=== PATIENT | male | born 1965 | race Caucasian/White ===

== ENCOUNTER → 2016-12-19 | Outpatient (CLI) | payer BC, OTHER ==
[~2016-12-19] MED LIST: ACET50TAOT PO
--- NOTE | 2016-12-19 13:49 | REP ---
MRI thoracic spine without contrast: History: Pain in the thoracic and lumbar spine. No comparison imaging. Technique: Sagittal and axial T1 and T2-weighted scans are acquired in the usual fashion with and without fat saturation. Sequences include spin echo, turbo spin-echo, and STIR imaging sequences. MRI findings: There is a 1.7 cm hemangioma in the T12 vertebral body. Cortical and medullary bone signal intensity are otherwise unremarkable. Vertebral body heights are preserved. Alignment is normal. Disc spaces are maintained except at T5-6 and T6-7 which are slightly narrowed. At the T5-6 level, there is a right paracentral focal disc protrusion which effaces the ventral lateral subarachnoid space and subtly flattens the ventral lateral margin of the thoracic cord. There is also mild lateral disc bulging at T6-T7. No other thoracic disc herniation is seen. Thoracic cord is normal in coarse, caliber and signal intensity on T1 and T2-weighted scans. No neural foraminal lesion is appreciated. Impression: Mild degenerative disc changes with a right paracentral focal disc protrusion at T5-6 and right posterior disc bulging at T6-T7. Signed by Cristophre Castillo MD 12/19/2016 03:53 P
--- NOTE | 2016-12-19 15:31 | REP ---
MRI lumbar spine without contrast: History: Pain in the lumbar spine. Technique: Sagittal and axial T1 and T2-weighted scans are acquired in the usual fashion with and without fat saturation. Sequences include spin echo, turbo spin-echo, and STIR imaging sequences. MRI findings: Cortical and medullary bone signal intensity are normal. Vertebral body heights are preserved. Alignment is normal. Normal caliber aorta is seen. No extra spinal abnormality is observed. There is a 1.8 cm hemangioma in the right side of the T12 vertebral body. Conus medullaris is normal in position and appearance at L1. Disc spaces are maintained in height and signal intensity. Axial and sagittal images at the L5-S1 level shows mild bilateral facet hypertrophy consistent with some degree of osteoarthritis. There is mild diffuse disc bulging at the L5-S1 disc margin. This effaces the ventral epidural fat but does not compress the thecal sac. No neural foraminal narrowing is seen. No spondylolysis or spondylolisthesis is seen. At L4-5, there is mild diffuse disc bulging also noted subtly indenting the ventral margin of the thecal sac. There is mild to moderate facet hypertrophy at L4-5. Canal size is borderline. At L3-4, there is mild facet and ligamentum flavum hypertrophy. Borderline canal size is seen. There is diffuse disc bulging. No neural foraminal narrowing is seen. At L2-L3, there is no significant abnormality. The L1-L2 level is unremarkable as well. Impression: Borderline canal size at L4-5 and L3-4. Facet hypertrophy bilaterally at L4-L5, L5-S1 and to a lesser extent L3-4. No neural foraminal narrowing is seen. Signed by Cristopher Castillo MD 12/19/2016 03:54 P
== END ==
LOC: M RAD 11:05
PROVIDERS: ATTEND Family Medicine
DX: M51.36 Other intervertebral disc degeneration, lumbar region (principal); M51.24 Other intervertebral disc displacement, thoracic region

== ENCOUNTER → 2017-10-08 | Outpatient (REF) | payer OTHER | LOC: M LAB REF 09:22 | DX: J02.9 Acute pharyngitis, unspecified (principal) ==

== ENCOUNTER 2018-11-29 06:38 | Day surgery (SDC) | payer BC, OTHER ==
[~2018-11-29] VITALS: Ht 180.3 cm; Wt 109.8 kg
[~2018-11-29 06:38] MED LIST changes: +ACET500T15 PO; -ACET50TAOT PO; +ATOR1TAB19 PO
[2018-11-29] MEDS ORDERED: LIDOCAINE 2% INJ 100 MG/5 ML SDV (FOR ANES.) As Ordered ONE (07:29)
[2018-11-29] MEDS ORDERED: propofoL 200 MG/20 ML VIAL As Ordered ONE ×2 (07:29→07:54)
--- NOTE | 2018-11-29 07:53 | ROOR ---
Patient Name: Santiago Casanova Procedure Date: 11/29/2018 7:31 AM Date of : 1965 Age: 53 Room: [facility] Gender: Male Note Status: Finalized Procedure: Colonoscopy Indications: High risk colon cancer surveillance: Personal history of colonic polyps, Last colonoscopy: August 2015 Providers: Phi PHAM MD Referring MD: PHI ISAACS MD Requesting Provider: Medicines: Monitored Anesthesia Care Complications: No immediate complications. Procedure: Pre-Anesthesia Assessment: - The heart rate, respiratory rate, oxygen saturations, blood pressure, adequacy of pulmonary ventilation, and response to care were monitored throughout the procedure. The Colonoscope was introduced through the anus and advanced to the cecum, identified by appendiceal orifice and ileocecal valve. The colonoscopy was performed without difficulty. The patient tolerated the procedure well. The quality of the bowel preparation was adequate and fair. Findings: The perianal and digital rectal examinations were normal. Retroflexion in the right colon was performed. Two sessile polyps were found in the ascending colon and cecum. The polyps were diminutive in size. These polyps were removed with a cold snare. Resection and retrieval were complete. The exam was otherwise without abnormality on direct and retroflexion views. Impression: - Preparation of the colon was fair. - Two diminutive polyps in the ascending colon and in the cecum, removed with a cold snare. Resected and retrieved. - The examination was otherwise normal on direct and retroflexion views. Recommendation: - Repeat colonoscopy in 5 years for surveillance based on personal history of previous adenomatous polyps. Phi Pham MD Phi PHAM MD 11/29/2018 7:53:29 AM Electronically signed by Phi PHAM MD Number of Addenda: 0 Note Initiated On: 11/29/2018 7:31 AM Estimated Blood Loss: Estimated blood loss: none.
[2018-11-29] MEDS ORDERED: NS 1,000 ML IV ONE (08:00)
[2018-11-29 08:15] VITALS: BP 123/87
== END 2018-11-29 08:26 | disposition home or self-care (01) ==
LOC: M OPP 06:38
PROVIDERS: ATTEND Internal Medicine Gastroenterology
DX: Z12.11 Encounter for screening for malignant neoplasm of colon (principal); Z86.010 Personal history of colon polyps; D12.2 Benign neoplasm of ascending colon; D12.0 Benign neoplasm of cecum; Z79.899 Other long term (current) drug therapy

== ENCOUNTER 2019-03-18 10:36 | Inpatient (IN) | payer BC, OTHER ==
[~2019-03-18] VITALS: Ht 175.3 cm; Wt 111.4 kg
[2019-03-18] MEDS ORDERED: ONDANSETRON 4MG/2ML VIAL (J2405) IV ONE (11:00)
[2019-03-18] MEDS: MORPHINE 4 MG/ML 1ML VIAL/SYRINGE (J2270) IV PRN ×2 (11:14→12:48)
--- NOTE | 2019-03-18 11:55 | REP ---
RIGHT ANKLE, THREE VIEWS: Three views of the right ankle performed. Oblique fracture of the distal tibia is mildly displaced. There is a fracture of the posterior malleolus. There is an oblique fracture of the distal fibula, which is also mildly displaced. Ankle mortise appears preserved. There is mild inferior calcaneal spurring. Electronically Signed by Andres Herrera MD 03/18/2019 04:21 P
--- NOTE | 2019-03-18 13:51 | REP ---
CT RIGHT ANKLE: Axial CT right ankle performed. Oblique fracture of the distal fibula is noted with mild posterolateral displacement. There is a comminuted intra-articular fracture of the distal tibia which involves the posterior malleolus. The posterior malleolar fragment is not significantly displaced. The major oblique fracture demonstrates mild lateral and posterior displacement of the major distal fragment. Ankle mortise is relatively well maintained. Electronically Signed by Andres Herrera MD 03/18/2019 04:24 P
[2019-03-18] MEDS ORDERED: MORPHINE 2 MG/ML 1ML VIAL (J2270) IV PRN (15:15)
[2019-03-18 15:55] VITALS: BP 129/71
[2019-03-18 16:21] LABS: HEMATOCRIT 45.9 % (42.0-52.0); MEAN CORPUSCULAR HEMOGLOBIN 29.2 pg (27.0-33.0); MEAN CORPUSCULAR HGB CONC 32.7 g/dl (32.0-36.5); MEAN CORPUSCULAR VOLUME 89.3 fl (80.0-96.0); PLATELET COUNT, AUTOMATED 275 10^3/uL (150-450); RED BLOOD COUNT 5.14 10^6/uL (4.30-6.10); WHITE BLOOD COUNT 11.7 10^3/uL (4.0-10.0)
[2019-03-18 16:34] LABS: INR 1.09; PROTHROMBIN TIME 13.8 SECONDS (11.8-14.0)
--- NOTE | 2019-03-18 16:34 | REP ---
Single view chest: 03/18/2019. Indication: Preoperative assessment. Comparison: None. Findings: The lungs are clear. There is no pleural effusion or pneumothorax. The cardiomediastinal silhouette is unremarkable. Impression: No acute cardiopulmonary process. Electronically Signed by Christiano Nieves DO 03/18/2019 04:27 P
[2019-03-18 16:35] LABS: PARTIAL THROMBOPLASTIN TIME 26.7 SECONDS (25.0-38.4)
[2019-03-18 16:42] LABS: ERYTHROCYTE SEDIMENTATION RATE 2 mm/hr (0-20)
[2019-03-18 16:46] LABS: BLOOD UREA NITROGEN 15 MG/DL (7-18); CALCIUM LEVEL 8.7 MG/DL (8.5-10.1); CARBON DIOXIDE LEVEL 28 MEQ/L (21-32); CHLORIDE LEVEL 104 MEQ/L (98-107); CREATININE FOR GFR 1.02 MG/DL (0.70-1.30); GLOMERULAR FILTRATION RATE > 60.0 (>56); GLUCOSE, FASTING 94 MG/DL (70-100); POTASSIUM SERUM 4.2 MEQ/L (3.5-5.1); SODIUM LEVEL 139 MEQ/L (136-145)
--- NOTE | 2019-03-18 16:46 | ECGEPIP ---
[facility] Test Date: 2019-03-18 Pat Name: HERI ALVAREZ Department: Room: N2207-79 Gender: Male [employer]: : 1965 Requested By: TRACEY Rock Order Number: [id number] Reading MD: Fred Leal Measurements Intervals [place] Rate: 87 P: 50 ME: 160 QRS: 29 QRSD: 91 T: 49 QT: 356 QTc: 430 Interpretive Statements SINUS RHYTHM WITH FREQUENT SUPRAVENTRICULAR PREMATURE COMPLEXES Slightly prominent right precordial R waves; rule out right ventricular conduction delay. Other than the observed ectopic activity, no change from 03/23/16 Electronically Signed on 03-18-2019 16:46:03 EST by Fred Leal
--- NOTE | 2019-03-18 17:00 | HPE ---
DATE OF ADMISSION: 03/18/2019 CHIEF COMPLAINT: Right ankle pain. The patient states that he was outside walking today when he had a slip and fall. He immediately appreciated extreme pain, 10 out of 10, that was sharp in nature and localized to the ankle and it was made worse with any sort of movement or weight bearing and improved only with immobilization and pain medications. He denies any numbness, tingling, fevers, chills, nausea, vomiting, or pain elsewhere in his body. REVIEW OF SYSTEMS: Complete 10-system review was conducted and pertinent positives and negatives as noted in the history of present illness, all other systems negative. ALLERGIES: No known drug allergies. MEDICATIONS: The patient is just on a statin. PAST MEDICAL HISTORY: Hyperlipidemia. PAST SURGICAL HISTORY: Appendectomy and tonsillectomy as a child. SOCIAL HISTORY: He lives at home with his . Nonsmoker. PHYSICAL EXAMINATION: The patient is awake, alert, oriented, well dressed, appropriate affect and mood. Breathing nonlabored on room air. Normocephalic, atraumatic. Bilateral upper extremities are nontender to palpation. Full range of motion of the shoulders, wrists, and elbows without pain or discomfort. Skin is intact. Radial pulse 2+. Sensation intact to light touch in superficial sensory branch, radial nerve, median nerve and ulnar nerve. Positive AIN, PIN, and ulnar motor nerve function. Left lower extremity with no tenderness to palpation, negative log roll. Full active range of motion of the toes, ankle and knee. Skin is intact. Posterior tibial pulse 2+. Sensation is intact to light touch in superficial, peroneal, deep peroneal, sural, saphenous, and tibial distributions. Positive EHL, FHL, tibialis, and gastroc motor function. Right lower extremity skin is intact, significant swelling, ecchymosis. Posterior tibial pulse 2+ on the right. Positive EHL, FHL, tibialis, and gastroc motor function. No tenderness to palpation about the knee. Sensation intact to light touch in superficial, peroneal, deep peroneal, sural, saphenous, and tibial distributions. Imaging reviewed demonstrating a right distal tibia and fibula fracture, intraarticular. DIAGNOSIS: Right distal fibula and tibia fracture, intraarticular. Discussed at great length with the patient that at this point in time, due to the swelling and soft tissue compromise, that we place the patient to an ex fix. The ex fix will remain in place anywhere from a few days to a couple of weeks in order to restore tissue to a more grindstone state, at which point we will remove the ex fix and use internal hardware for an open reduction, internal fixation (ORIF). The patient will be admitted overnight. He will get antibiotic prophylaxis and placed on deep vein thrombosis (DVT) prophylaxis. We will work on pain control. The patient is currently nothing by mouth. This was discussed with the patient and his . We discussed the risks and benefits, including, but not limited to infection and damage to surrounding structures, and they agree with surgical intervention.
[2019-03-18] MEDS ORDERED: MIDAZOLAM INJ 2 MG/2 ML VIAL (J2250) As Ordered ONE (17:56)
[2019-03-18] MEDS ORDERED: fentaNYL 100 MCG/2 ML INJECTION (J3010) As Ordered ONE ×2 (17:56→19:20)
[2019-03-18] MEDS ORDERED: ceFAZolin 2 GM/D5W 50 ML IV BAG (J0690 PER 500MG) As Ordered ONE (18:25)
[2019-03-18] MEDS ORDERED: ACETAMINOPHEN 1000MG 100ML IV BTL (OFIRMEV) (J0131 PER 10MG) As Ordered ONE (18:39)
[2019-03-18] MEDS ORDERED: KETOROLAC 60 MG/2 ML VIAL (J1885) As Ordered ONE (18:39)
[2019-03-18] MEDS ORDERED: dexameTHASONE 4 MG/ML 1ML VIAL (J1100) As Ordered ONE (18:39)
[2019-03-18] MEDS ORDERED: PROPOFOL 200 MG/20 ML VIAL As Ordered ONE (18:39)
[2019-03-18] MEDS ORDERED: ONDANSETRON 4MG/2ML VIAL (J2405) As Ordered ONE (18:39)
[2019-03-18] MEDS ORDERED: LIDOCAINE 2% INJ 100 MG/5 ML SDV (FOR ANES.) As Ordered ONE (18:39)
[2019-03-18] MEDS ORDERED: METOCLOPRAMIDE INJ 10MG/2ML VIAL (J2765) As Ordered ONE (18:49)
[2019-03-18] MEDS ORDERED: DESFLURANE 240 ML INHALANT As Ordered ONE (19:00)
[2019-03-18] MEDS: fentaNYL 100 MCG/2 ML INJECTION (J3010) IV PRN ×6 (19:22→23:36)
[2019-03-18] MEDS ORDERED: PERCOCET 5MG/325MG TAB As Ordered ONE (19:27)
[2019-03-18] MEDS ORDERED: MEPERIDINE INJ 25 MG/ML VIAL (J2175) IV PRN (19:30)
[2019-03-18] MEDS ORDERED: LR 1,000 ML IV SCH (19:30)
[2019-03-18] MEDS ORDERED: PERCOCET 5MG/325MG TAB PO PRN (19:30)
[2019-03-18] MEDS ORDERED: METOCLOPRAMIDE INJ 10MG/2ML VIAL (J2765) IV PRN (19:30)
[2019-03-18] MEDS ORDERED: ONDANSETRON 4MG/2ML VIAL (J2405) IV PRN (19:30)
--- NOTE | 2019-03-18 19:35 | REP ---
Six spot fluoroscopic images: 03/18/2019. Indication: Procedural guidance. Findings: Imaging provided for intraoperative guidance. Please see operative report for details. Impression: Imaging provided for intraoperative guidance. 1 minute 14 seconds fluoroscopy time. Electronically Signed by Christiano Nieves DO 03/18/2019 07:25 P
[2019-03-18] MEDS ORDERED: HYDROMORPHONE HCL 0.5 MG/ 0.5 ML SYRINGE (J1170 PER 1) As Ordered ONE ×3 (19:47→20:12)
[2019-03-18] MEDS: HYDROMORPHONE HCL 0.5 MG/ 0.5 ML SYRINGE (J1170 PER 1) IV PRN ×4 (19:49→20:14)
[2019-03-18 21:05] VITALS: BP 162/96
[2019-03-18 21:42] VITALS: BP 169/96
[2019-03-18 22:26] VITALS: BP 125/84
[2019-03-18] MEDS: NS 1,000 ML IV SCH (23:38)
[2019-03-19] VITALS: BP 122/81
[2019-03-19] MEDS: ceFAZolin SOD 1 GM in D5W MINI-BAG PLUS 50 ML IV SCH ×3 (00:50→16:34)
[2019-03-19 01:19] VITALS: BP 120/78
[2019-03-19] MEDS: NS 1,000 ML IV SCH (01:35)
[2019-03-19 01:45] VITALS: BP 122/80
[2019-03-19 02:00] VITALS: BP 119/77
[2019-03-19] MEDS: oxyCODONE 5MG TAB PO PRN ×3 (05:00→16:34)
[2019-03-19 06:13] VITALS: BP 117/77
[2019-03-19] MEDS: MIRALAX *UNIT DOSE* 17GM PACKET PO SCH (09:00)
[2019-03-19] MEDS: ASPIRIN 81 MG ENTERIC TAB PO SCH ×2 (09:05→20:11)
[2019-03-19] MEDS: MORPHINE 2 MG/ML 1ML VIAL (J2270) IV PRN ×4 (14:00→21:25)
--- NOTE | 2019-03-19 16:21 | REP ---
CT right ankle without contrast: History: Ankle fracture. Comparison is made with today's radiographs. Comparison CT study is preop from March 18, 2019. Technique: Helical scanning is acquired and axial 2 mm images are reformatted. Coronal and sagittal multiplanar reformation images are generated. CT findings: There is an os naviculare again noted. External pin traction has been applied, anchored in the 1st proximal metatarsal and on plain radiographs in the proximal tibia. There is a comminuted distal tibial fracture which is effectively a trimalleolar fracture. The posterior tibial "malleolar" fragment fracture is somewhat diastatic, 2.5-3.5 mm. Otherwise not displaced. There is an obliquely oriented component to the distal diametaphyseal portion of the fracture which shows mild apex anterior angulation on CT images compared to the previous day's study. The medial malleolar component of the fracture appears anatomically aligned. At the medial aspect of the tibial plafond, there is 1-2 mm of cortical step off with depression of the medial malleolar fragment. The ankle mortise is intact. There is a tiny bone fragment at the lateral aspect of the ankle mortis intra-articular. No tarsal fracture is seen. The fibular fracture shows some overriding and diastases similar to the previous day's study. Impression: Comminuted distal tib-fib, trimalleolar, fracture with external pin traction. Mild apex anterior angulation of the major tibial component. Tiny intra-articular bone fragment. Electronically Signed by Cristopher Castillo MD 03/19/2019 05:52 P
--- NOTE | 2019-03-19 18:42 | REP ---
HISTORY: Status post external fixation. COMPARISON: The prior ankle exam of 03/18/2019 was reviewed. There is an external fixator in place. There appears to be no significant change although the examination of today is technically different than the dedicated ankle exam. Electronically Signed by Cash Gates DO 03/20/2019 04:14 P
[2019-03-19] MEDS ORDERED: MORPHINE 2 MG/ML 1ML VIAL (J2270) IV ONE (22:00)
[2019-03-19] MEDS: ACETAMINOPHEN 500 MG TAB PO SCH (22:17)
[2019-03-19] MEDS: MORPHINE 15 MG SA TAB PO SCH (22:17)
[2019-03-20] MEDS: oxyCODONE 5MG TAB PO PRN ×2 (02:20→12:29)
[2019-03-20] MEDS: ACETAMINOPHEN 500 MG TAB PO SCH ×3 (05:59→21:25)
[2019-03-20 06:00] VITALS: BP 116/80
[2019-03-20] MEDS: MORPHINE 15 MG SA TAB PO SCH ×2 (08:49→21:25)
[2019-03-20] MEDS: ASPIRIN 325 MG TAB PO SCH ×2 (08:49→21:24)
[2019-03-20] MEDS: MIRALAX *UNIT DOSE* 17GM PACKET PO SCH (08:50)
[2019-03-20 14:27] VITALS: BP 128/79
--- NOTE | 2019-03-20 19:09 | RO ---
DATE OF PROCEDURE: 03/18/2019 PREOPERATIVE DIAGNOSIS: Right pilon fracture. POSTOPERATIVE DIAGNOSIS: Right pilon fracture. PROCEDURE: Right multiplanar external fixator (ex fix). SURGEON: Renato Campbell MD CONCRETE MASON: ANESTHESIA: OPERATIVE INDICATIONS: 53-year-old male who suffered a pilon fracture while in his driveway after a slip and fall. We discussed that his unstable fracture needs fixation; however, soft tissue status does not allow for that at this time. Therefore, we will proceed with external fixating. Patient agreed. He understood the risks and benefits, including, but not limited to, infection, damage to surrounding structures, incomplete relief, malunion, nonunion. PREOPERATIVE ANTIBIOTICS: 2 grams of Ancef. BLOOD LOSS: Minimal. TOURNIQUET TIME: 31 minutes. COMPLICATIONS: None. DESCRIPTION OF PROCEDURE: Patient was brought back to the operating room (OR) in the supine position with only general anesthesia, at which point the right leg was prepped and draped in the usual fashion. Once we had a time-out and all in agreement site, side, and surgery, we elevated tourniquet up to 250 mmHg. We then made two stab incisions over the anterior tibia and placed two [address], confirmed on AP and lateral x-ray. We then proceeded to the calcaneal (calc) pin, went from medial to lateral, confirmed on x-ray positioning in the tuberosity. We then placed a pin into the 1st metatarsal, confirmed on AP and lateral films. We then used manual traction along with the external fixator wires to reduce the fracture plane by indirect method. Once this was confirmed on AP and lateral, we tightened down all the nuts, at which point we confirmed one last time on AP and lateral. We were happy with the reduction and completion at this point for temporary status. Patient was awakened and taken to the postanesthesia care unit (PACU) in stable condition. POSTOPERATIVE PLAN: Patient will work on elevation and pain control and soft tissue management. We will plan for definitive fixation at a later date.
[2019-03-20 22:00] VITALS: BP 133/85
[2019-03-21] MEDS: oxyCODONE 5MG TAB PO PRN ×2 (04:32→17:26)
[2019-03-21 06:00] VITALS: BP 129/53
[2019-03-21] MEDS: ACETAMINOPHEN 500 MG TAB PO SCH ×3 (06:08→21:29)
[2019-03-21] MEDS: ASPIRIN 325 MG TAB PO SCH ×2 (08:34→20:06)
[2019-03-21] MEDS: MIRALAX *UNIT DOSE* 17GM PACKET PO SCH (08:34)
[2019-03-21] MEDS: MORPHINE 15 MG SA TAB PO SCH ×2 (08:34→20:07)
[2019-03-21 14:33] VITALS: BP 143/96
[2019-03-21 15:23] VITALS: BP 138/82
[2019-03-21 20:00] VITALS: BP 114/73
[2019-03-22] MEDS: oxyCODONE 5MG TAB PO PRN ×3 (01:47→13:52)
[2019-03-22] MEDS: ACETAMINOPHEN 500 MG TAB PO SCH ×3 (05:10→20:04)
[2019-03-22 06:00] VITALS: BP 113/76
[2019-03-22] MEDS: ASPIRIN 325 MG TAB PO SCH ×2 (07:50→20:03)
[2019-03-22] MEDS: MOM 30ML SUSPENSION UDC PO SCH ×2 (07:51→07:53)
[2019-03-22] MEDS: MIRALAX *UNIT DOSE* 17GM PACKET PO SCH ×2 (07:51→07:54)
[2019-03-22] MEDS: MORPHINE 15 MG SA TAB PO SCH ×2 (07:51→20:03)
[2019-03-22 14:00] VITALS: BP 126/78
[2019-03-22 21:35] VITALS: BP 115/73
[2019-03-23] MEDS: ACETAMINOPHEN 500 MG TAB PO SCH ×3 (05:32→20:27)
[2019-03-23 06:17] VITALS: BP 120/75
[2019-03-23] MEDS: MOM 30ML SUSPENSION UDC PO SCH (09:00)
[2019-03-23] MEDS: MIRALAX *UNIT DOSE* 17GM PACKET PO SCH (09:00)
[2019-03-23] MEDS: MORPHINE 15 MG SA TAB PO SCH ×2 (09:04→20:26)
[2019-03-23] MEDS: ASPIRIN 325 MG TAB PO SCH ×2 (09:04→20:25)
[2019-03-23] MEDS: oxyCODONE 5MG TAB PO PRN ×2 (09:05→14:47)
[2019-03-23 14:00] VITALS: BP 125/72
[2019-03-23 21:17] VITALS: BP 121/78
[2019-03-24] MEDS: ACETAMINOPHEN 500 MG TAB PO SCH ×3 (05:28→21:21)
[2019-03-24] MEDS: ASPIRIN 325 MG TAB PO SCH ×2 (08:49→21:21)
[2019-03-24] MEDS: MORPHINE 15 MG SA TAB PO SCH ×2 (08:49→21:21)
[2019-03-24] MEDS: MIRALAX *UNIT DOSE* 17GM PACKET PO SCH (09:00)
[2019-03-24] MEDS: MOM 30ML SUSPENSION UDC PO SCH (09:00)
[2019-03-24 14:00] VITALS: BP 150/102
[2019-03-24] MEDS: oxyCODONE 5MG TAB PO PRN (18:58)
[2019-03-24 20:30] VITALS: BP 124/88
[2019-03-25] MEDS: ACETAMINOPHEN 500 MG TAB PO SCH ×3 (05:52→21:09)
[2019-03-25 05:54] VITALS: BP 124/86
[2019-03-25] MEDS: ASPIRIN 325 MG TAB PO SCH ×2 (08:27→21:08)
[2019-03-25] MEDS: MORPHINE 15 MG SA TAB PO SCH ×2 (08:28→21:09)
[2019-03-25] MEDS: MOM 30ML SUSPENSION UDC PO SCH (08:31)
[2019-03-25] MEDS: MIRALAX *UNIT DOSE* 17GM PACKET PO SCH (08:31)
--- NOTE | 2019-03-25 10:21 | IPN ---
DATE: 03/25/2019 CHIEF COMPLAINT: Postoperative day #7 right pilon fracture, external fixator application. HISTORY OF PRESENT ILLNESS: This is a pleasant individual who had a distal tibia fracture. He underwent external fixator application by Dr. Campbell on 03/18/2019. He is doing well, but he did notice last night he had some cramping in his toes that he tried to stretch out. He says that he has been drinking quite a bit of water. Other than that, he is doing well with elevating his foot. PHYSICAL EXAMINATION: He is a well-appearing man who looks his stated age of 53. He is alert and oriented times three. Mood and affect pleasant, positive. He is lying supine in bed with his foot elevated. External fixators in situ. Vital signs are stable. No chest pain, shortness of breath. He is able to wiggle his toes. Normal sensation throughout the foot. Foot is warm and well perfused. Swelling is at a low to moderate level with some mild right wrinkling. Pin sites were covered with gauze currently. ASSESSMENT AND PLAN: This is a 53-year-old man who is awaiting definitive fixation of his distal tibia fracture. In my own estimation he may need a few more days. I recommended rest, ice, and elevation. For the cramping, he can try to stretch this out as well as elevate for the swelling and try some fluids with electrolyte replacement. He is on aspirin 325 mg by mouth twice a day for venous thromboembolism (VTE) prophylaxis.
[2019-03-25 13:58] VITALS: BP 124/85
[2019-03-25 22:00] VITALS: BP 142/91
[2019-03-26] MEDS: oxyCODONE 5MG TAB PO PRN (03:42)
[2019-03-26] MEDS: ACETAMINOPHEN 500 MG TAB PO SCH ×3 (05:27→21:04)
[2019-03-26 06:00] VITALS: BP 140/90
[2019-03-26] MEDS: MIRALAX *UNIT DOSE* 17GM PACKET PO SCH (09:00)
[2019-03-26] MEDS: MOM 30ML SUSPENSION UDC PO SCH (09:00)
[2019-03-26] MEDS: ASPIRIN 325 MG TAB PO SCH ×2 (09:19→21:03)
[2019-03-26] MEDS: MORPHINE 15 MG SA TAB PO SCH ×2 (09:20→21:05)
[2019-03-26 14:00] VITALS: BP 130/86
[2019-03-26 22:00] VITALS: BP 131/73
[2019-03-27] MEDS: oxyCODONE 5MG TAB PO PRN (05:28)
[2019-03-27] MEDS: ACETAMINOPHEN 500 MG TAB PO SCH ×3 (05:29→21:13)
[2019-03-27 06:00] VITALS: BP 130/87
[2019-03-27] MEDS: MOM 30ML SUSPENSION UDC PO SCH (09:00)
[2019-03-27] MEDS: MIRALAX *UNIT DOSE* 17GM PACKET PO SCH (09:00)
[2019-03-27] MEDS: MORPHINE 15 MG SA TAB PO SCH ×2 (09:06→21:13)
[2019-03-27] MEDS: ASPIRIN 325 MG TAB PO SCH ×2 (09:06→21:12)
[2019-03-27 14:36] VITALS: BP 117/79
[2019-03-27 20:14] VITALS: BP 146/93
[2019-03-28] MEDS: oxyCODONE 5MG TAB PO PRN (03:39)
[2019-03-28] MEDS: ACETAMINOPHEN 500 MG TAB PO SCH ×3 (05:45→21:47)
[2019-03-28 05:47] VITALS: BP 135/89
[2019-03-28] MEDS: MORPHINE 15 MG SA TAB PO SCH ×2 (08:22→21:46)
[2019-03-28] MEDS: MIRALAX *UNIT DOSE* 17GM PACKET PO SCH (08:22)
[2019-03-28] MEDS: ASPIRIN 325 MG TAB PO SCH ×2 (08:22→21:43)
[2019-03-28] MEDS: MOM 30ML SUSPENSION UDC PO SCH (08:22)
[2019-03-28 14:14] VITALS: BP 109/81
[2019-03-28 22:00] VITALS: BP 117/81
[2019-03-29] MEDS: ACETAMINOPHEN 500 MG TAB PO SCH ×3 (05:25→20:27)
[2019-03-29 06:00] VITALS: BP 120/83
[2019-03-29] MEDS: MIRALAX *UNIT DOSE* 17GM PACKET PO SCH (09:00)
[2019-03-29] MEDS: MOM 30ML SUSPENSION UDC PO SCH (09:00)
[2019-03-29] MEDS: ASPIRIN 325 MG TAB PO SCH ×2 (09:50→20:27)
[2019-03-29] MEDS: MORPHINE 15 MG SA TAB PO SCH ×2 (09:51→20:27)
[2019-03-29 14:00] VITALS: BP 114/71
[2019-03-29 22:00] VITALS: BP 135/88
[2019-03-30] MEDS: ACETAMINOPHEN 500 MG TAB PO SCH ×3 (05:12→20:56)
[2019-03-30 06:00] VITALS: BP 128/86
[2019-03-30] MEDS: ASPIRIN 325 MG TAB PO SCH ×2 (08:32→20:55)
[2019-03-30] MEDS: MORPHINE 15 MG SA TAB PO SCH ×2 (08:33→20:56)
[2019-03-30] MEDS: MIRALAX *UNIT DOSE* 17GM PACKET PO SCH (08:33)
[2019-03-30] MEDS: MOM 30ML SUSPENSION UDC PO SCH (08:33)
[2019-03-30 14:30] VITALS: BP 125/85
[2019-03-30 22:00] VITALS: BP 134/83
[2019-03-31] MEDS: ACETAMINOPHEN 500 MG TAB PO SCH ×2 (05:32→14:00)
[2019-03-31 06:00] VITALS: BP 131/84
[2019-03-31] MEDS ORDERED: ceFAZolin SOD 2 GM in IV 1 EA IV ONE (06:00)
[2019-03-31] MEDS: MOM 30ML SUSPENSION UDC PO SCH (09:00)
[2019-03-31] MEDS: MIRALAX *UNIT DOSE* 17GM PACKET PO SCH (09:00)
[2019-03-31] MEDS: MORPHINE 15 MG SA TAB PO SCH ×2 (10:39→21:00)
[2019-03-31 14:51] VITALS: BP 130/82
[2019-03-31] MEDS ORDERED: fentaNYL 100 MCG/2 ML INJECTION (J3010) As Ordered ONE ×3 (15:39→21:44)
[2019-03-31] MEDS ORDERED: MIDAZOLAM INJ 2 MG/2 ML VIAL (J2250) As Ordered ONE ×2 (15:39→16:13)
[2019-03-31] MEDS: MIDAZOLAM INJ 2 MG/2 ML VIAL (J2250) IV SCH ×2 (15:53→15:57)
[2019-03-31] MEDS: fentaNYL 100 MCG/2 ML INJECTION (J3010) IV SCH ×2 (15:53→16:01)
[2019-03-31] MEDS ORDERED: PROPOFOL 200 MG/20 ML VIAL As Ordered ONE (16:13)
[2019-03-31] MEDS ORDERED: dexameTHASONE 4 MG/ML 1ML VIAL (J1100) As Ordered ONE ×2 (16:13→19:37)
[2019-03-31] MEDS ORDERED: ONDANSETRON 4MG/2ML VIAL (J2405) As Ordered ONE ×2 (16:13→19:37)
[2019-03-31] MEDS ORDERED: LIDOCAINE 2% INJ 100 MG/5 ML SDV (FOR ANES.) As Ordered ONE (16:13)
[2019-03-31] MEDS ORDERED: BUPIVACAINE/EPIN 0.25% 30 ML VIAL As Ordered ONE (16:15)
[2019-03-31] MEDS ORDERED: fentaNYL 250 MCG/5 ML INJECTION (J3010) As Ordered ONE (17:05)
[2019-03-31] MEDS ORDERED: ROCURONIUM BROMIDE 50 MG/5 ML VIAL As Ordered ONE ×2 (17:05→19:31)
[2019-03-31] MEDS ORDERED: dexameTHASONE 10 MG/1 ML VIAL PRES.FREE (J1100) ONE (17:53)
[2019-03-31] MEDS ORDERED: ROPIvacaine 0.5% 30 ML INJECTION (J2795 PER 1MG) ONE (17:53)
[2019-03-31] MEDS ORDERED: EPINEPHrine INJ 1 MG/ML 1ML VIAL ONE (17:53)
[2019-03-31] MEDS ORDERED: KETOROLAC 60 MG/2 ML VIAL (J1885) As Ordered ONE (19:37)
[2019-03-31] MEDS ORDERED: METOCLOPRAMIDE INJ 10MG/2ML VIAL (J2765) As Ordered ONE (19:37)
[2019-03-31] MEDS ORDERED: LACRILUBE (AKWA TEARS) OPHTH OINT 3.5 GM As Ordered ONE (19:54)
[2019-03-31] MEDS ORDERED: ceFAZolin 2 GM/D5W 50 ML IV BAG (J0690 PER 500MG) As Ordered ONE (20:17)
[2019-03-31] MEDS ORDERED: SUGAMMADEX SODIUM 500 MG/5 ML VIAL (BRIDION) As Ordered ONE (21:29)
[2019-03-31] MEDS ORDERED: LR 1,000 ML IV SCH (22:15)
[2019-03-31] MEDS ORDERED: MEPERIDINE INJ 25 MG/ML VIAL (J2175) IV PRN (22:15)
[2019-03-31] MEDS ORDERED: METOCLOPRAMIDE INJ 10MG/2ML VIAL (J2765) IV PRN (22:15)
[2019-03-31] MEDS ORDERED: ONDANSETRON 4MG/2ML VIAL (J2405) IV PRN (22:15)
[2019-03-31] MEDS ORDERED: PERCOCET 5MG/325MG TAB PO PRN (22:15)
[2019-03-31] MEDS ORDERED: fentaNYL 100 MCG/2 ML INJECTION (J3010) IV PRN (22:15)
[2019-03-31 23:10] VITALS: BP 141/91
[2019-03-31 23:51] VITALS: BP 137/88
[2019-04-01] MEDS: ACETAMINOPHEN 500 MG TAB PO SCH ×4 (00:48→20:49)
[2019-04-01] MEDS: ceFAZolin SOD 1 GM in D5W MINI-BAG PLUS 50 ML IV SCH ×3 (00:48→16:22)
[2019-04-01 01:09] VITALS: BP 135/87
[2019-04-01 02:00] VITALS: BP 134/87
[2019-04-01] MEDS: oxyCODONE 5MG TAB PO PRN ×3 (02:38→17:48)
[2019-04-01 06:53] VITALS: BP 135/87
[2019-04-01] MEDS ORDERED: XARE10TA PO (07:39)
[2019-04-01] MEDS ORDERED: PERC5TAB12 PO (07:39)
[2019-04-01] MEDS: MIRALAX *UNIT DOSE* 17GM PACKET PO SCH (08:22)
[2019-04-01] MEDS: MOM 30ML SUSPENSION UDC PO SCH (08:22)
[2019-04-01] MEDS: MORPHINE 15 MG SA TAB PO SCH ×2 (08:23→20:48)
[2019-04-01] MEDS ORDERED: ASPIRIN 325 MG TAB PO SCH (09:00)
[2019-04-01 10:00] VITALS: BP 135/85
[2019-04-01 14:30] VITALS: BP 137/88
[2019-04-01] MEDS: RIVAROXABAN 10 MG TAB (XARELTO) PO SCH (17:18)
[2019-04-01 20:00] VITALS: BP 123/81
[2019-04-02] MEDS: oxyCODONE 5MG TAB PO PRN ×2 (00:35→07:03)
[2019-04-02] MEDS ORDERED: IBUPROFEN 400 MG TAB PO PRN (02:45)
[2019-04-02] MEDS ORDERED: MORPHINE 2 MG/ML 1ML VIAL (J2270) IV ONE ×2 (02:45→04:45)
[2019-04-02] MEDS ORDERED: MORPHINE 2 MG/ML 1ML VIAL (J2270) IV PRN ×3 (03:00→07:45)
[2019-04-02] MEDS: ACETAMINOPHEN 500 MG TAB PO SCH ×3 (05:03→22:32)
[2019-04-02 06:36] VITALS: BP 127/82
[2019-04-02] MEDS: MIRALAX *UNIT DOSE* 17GM PACKET PO SCH (08:40)
[2019-04-02] MEDS: MOM 30ML SUSPENSION UDC PO SCH (08:40)
[2019-04-02] MEDS: MORPHINE 15 MG SA TAB PO SCH (08:40)
[2019-04-02] MEDS ORDERED: NS 1,000 ML IV SCH (08:43)
[2019-04-02] MEDS ORDERED: EPIDURAL/PCA KEYS XX PRN (08:45)
[2019-04-02] MEDS ORDERED: NALBUPHINE HCL 10 MG/ML AMP (J2300) IV PRN (08:45)
[2019-04-02] MEDS ORDERED: NALOXONE INJ 0.4 MG/1 ML VIAL (J2310) IV PRN (08:45)
[2019-04-02] MEDS ORDERED: diphenhydrAMINE INJ 50MG/ML VIAL (J1200) IV PRN (08:45)
[2019-04-02] MEDS ORDERED: MORPHINE 1MG/ML IN 0.9% NACL 100ML IV BAG IV PRN (08:45)
[2019-04-02 10:00] VITALS: BP 140/90
--- NOTE | 2019-04-02 10:25 | REP ---
Right ankle: 214 views. History: Intraoperative imaging right ankle fracture fixation. 4 minutes 56 seconds of fluoroscopy time is reported. Findings a sequence of 214 last image hold fluoroscopically obtained spot radiographs of the ankle document open reduction internal fixation procedure. Electronically Signed by Cristopher Castillo MD 04/02/2019 10:17 A
--- NOTE | 2019-04-02 10:37 | IPN ---
DATE: 04/02/2019 CHIEF COMPLAINT: Post-op day #1 right tibial plafond open reduction, internal fixation. HISTORY OF PRESENT ILLNESS: This 53-year-old man underwent removal of external fixator followed by three incision open reduction, internal fixation of his right distal tibia fracture. He was complaining about increased pain overnight. I asked them to elevate, ice leg as well as giving one intravenous (IV) dose followed by one other as needed IV dose of 2 mg of morphine. Seems does not control his pain adequately, so I rounded on him this morning. PHYSICAL EXAMINATION: This is a well-appearing 53-year-old man. Upon entering the room he was actually asleep, however according to the nurses 30 minutes ago he was in quite a bit of discomfort. He does complain of pain to his ankle. I split the splint all the way down right down the middle and debulked it, especially the anterior aspect of the splint. There is number of ABD pads there that had some dry blood on them that I removed. He immediately felt a lot better. He is able wiggle his toes. There is no pain on passive stretch. There is moderate swelling mostly to his foot. However, four calf apartments appear soft. Normal sensation of the dorsum and plantar aspect of his toes with good pedal pulses. The foot is appropriately elevated. Incisions appear normal. ASSESSMENT AND PLAN: This is 53-year-old man I have a little clinical suspicion of compartment syndrome postoperative day #1 after open reduction, internal fixation of his tibial plafond fracture given the fact that there is no pain on passive stretch and the compartments were soft. I recommended having the splint remain loose and open for today and applying ice and elevating it. Yohana our nurse practitioner had ordered an ultrasound to rule out deep venous thrombosis (DVT) but I do not think that this is necessary, so I will cancel this test. She also ordered a CORPORATE PARALEGAL and I think this is reasonable to try for today. However, I think he will feel much better now that the splint is open and his pain should settle down with conservative management. Dr. Campbell will be around to the see this man tomorrow and we will leave the splint open for today and re-wrap it tomorrow so that he can try to get up to use the washroom, but for now he I suspect will be mostly in bed with the foot elevated.
[2019-04-02 14:00] VITALS: BP 141/90
[2019-04-02] MEDS: ONDANSETRON 4MG/2ML VIAL (J2405) IV PRN (14:44)
[2019-04-02] MEDS: RIVAROXABAN 10 MG TAB (XARELTO) PO SCH (17:12)
[2019-04-02 17:53] VITALS: BP 132/86
[2019-04-02 22:32] VITALS: BP 139/90
[2019-04-03 01:57] VITALS: BP 142/90
[2019-04-03] MEDS: ONDANSETRON 4MG/2ML VIAL (J2405) IV PRN (02:57)
[2019-04-03] MEDS: ACETAMINOPHEN 500 MG TAB PO SCH ×3 (06:26→21:23)
[2019-04-03 06:29] VITALS: BP 144/90
[2019-04-03] MEDS ORDERED: ONDANSETRON 4 MG TAB (S0181) PO PRN (06:30)
[2019-04-03] MEDS ORDERED: PERCOCET 5MG/325MG TAB PO PRN ×2 (06:30)
[2019-04-03] MEDS ORDERED: XARE10TA PO (06:32)
[2019-04-03] MEDS ORDERED: MAALOX 30 ML SUSP *UDC PO PRN (07:00)
[2019-04-03] MEDS: MOM 30ML SUSPENSION UDC PO SCH (09:00)
[2019-04-03] MEDS: MIRALAX *UNIT DOSE* 17GM PACKET PO SCH (09:00)
[2019-04-03 14:00] VITALS: BP 144/93
--- NOTE | 2019-04-03 16:45 | RO ---
DATE OF PROCEDURE: 03/31/2019 PREPROCEDURE DIAGNOSIS: Right tibia and fibula pilon fracture, status post internal fixator. POSTPROCEDURE DIAGNOSIS: Right tibia and fibula pilon fracture, status post internal fixator. OPERATIVE PROCEDURE: Right tibia-fibula pilon removal of external fixator and open reduction internal fixation of tibia and fibula pilon fracture. SURGEON: Renato Campbell MD REAL ESTATE REPRESENTATIVE: BRODY Griffith who was essential during san portions of the procedure for retraction and hardware manipulation. ANESTHESIA: General. ESTIMATED BLOOD LOSS: 150 mL TOURNIQUET TIME: Two separate tourniquets. First two and a half while prone, then an hour and a half while supine. PREOPERATIVE ANTIBIOTICS: 2 grams of Ancef which was redosed during the procedure. COMPLICATIONS: None. INDICATION: A 53-year-old male that suffered an unstable right comminuted interarticular pilon fracture. On his first presentation we placed an external fixator, now two weeks later his soft tissues have responded appropriately and we are planning on going back for open reduction internal fixation with removal of the explant external fixator. The patient expressed understanding and agreement with this plan including the risks and benefits, including but not limited to infection, damage to soft tissue structures, malunion, nonunion, pain, incomplete relief, and posttraumatic arthritis. Patient expressed understanding and wished to proceed. DESCRIPTION OF PROCEDURE: Patient was brought back to the operating room (OR) in the supine position and underwent general anesthesia, at which point we had a time out confirming site, side and surgery. Once all in agreement, we removed the external fixator from his right ankle. We then placed the patient in prone position on the bed. Once all padded and secured, we prepped the right leg in the usual fashion and draped it. At which point we had repeat time out to reassess site and surgery. Once in agreement we elevated the tourniquet up to 250 mmHg. We then did a posterolateral incision senior living between the fibula and Achilles. Sharply incised down to the peroneal fascia to the lateral compartment. Careful to monitor for the sural nerve. Once entered the lateral compartment peroneal fascia we retracted them medially towards the Achilles, exposing the posterior aspect of the fibula. We thoroughly debrided and irrigated the fracture with sharp knife curettes, suction and irrigation. At which point, we used ndply-ii-axzsv reduction clamps then lobster clamp to reduce the fracture. We placed two 2.7 lag screws and then we placed a posteriorly based one-third tubular plate, confirmed on AP and lateral films. We were happy with the reduction and fixation. We then irrigated the wound thoroughly, then retracted the peroneals laterally exposing the posterior compartment. We incised the posterior compartment exposing flexor hallucis longus (FHL) and retracted it further medially, exposing the posterior malleolus. We used a knife and curettes to debride the fracture site. At which point, we then used a combination of ball spike pusher and K-wires to reduce the posterior malleolus on both AP and lateral film. We then made a medial incision along with medial malleolus, carefully preserved the saphenous nerve and vein. Once we encountered the vertical split of the medial malleolus fracture we used a ajdfe-xj-weybm reduction clamp to secure it into place. There was some comminution there preventing a cortical georgina for the proximal segments. We then placed our posteriorly based san plate over the posterior malleolus after we had done a 3.5 lag screw to compress just above the articular surface. This was functioning mostly as a buttress plate. We then placed a 2.7 reconstruction that was cut to two screws to hold that medial malleolus fracture into place. We confirmed these reductions and fixations on AP and lateral. We were very happy with the alignment and fixation. We then irrigated the wound thoroughly and closed with #3-0 Vicryl for the peroneal fascia, subcutaneous tissue and nylon for skin for all three incisions. At which point, we wrapped a sterile towel around the patient's leg, took the drapes down, put the patient onto a stretcher then back onto the table supine. At which point, we prepped the leg in the usual fashion and draped it as well. Had a repeat time out confirming site, side and surgery. Once all in agreement, we elevated the tourniquet up to 250 mmHg. We then made a large anterior lateral incision for the anterior, lateral and posterior tibia, incised sharply through subcutaneous tissues, careful to identify superficial peroneal. This was dissected both proximally and distally so it could be retracted carefully. We then incised the anterior compartments and elevated it off the anterior tibia exposing the fracture plane and distal tibia. We then used a combination of seyjn-iu-dijry and lobster claw clamps to reduce the tibia in place while the clamp was holding the fracture reduced, which was confirmed on AP and lateral films. We then placed the anterior-lateral locking tibia plate in place, secured it distally with locking screws after compressing the bone with one cortical and then multiple shaft screws to compress the plate to the tibial shaft in line with the hybrid fixation with intermittent locking screw. At which point. we confirmed the adequate fixation on AP and lateral films along with stressing the ankle for one syndesmosis and also fracture fragments secure fixation. We were very happy with this. We then irrigated the wound thoroughly, closed the fascia with #3-0 Vicryl, subcutaneous tissue with #3-0 Vicryl and #2-0 nylon for skin. Patient was then placed with a dressing of Adaptic, gauze and sterile Webril, placed in a posterior slab splint with Anurag. Tourniquet was let down. Patient was awakened and taken to post anesthesia care unit (PACU) in stable condition. POSTOPERATIVE PLAN: Patient will work on pain control and elevation for soft tissue care. I will see him in the office in approximately 2 weeks. At which point, we will remove the incisions if they are ready along with placing the patient in a CAM boot at that time to work on ankle range of motion. He will be nonweightbearing in the meantime. He also will get SCIP antibiotic prophylaxis and be placed on deep venous thrombosis (DVT) prophylaxis.
[2019-04-03] MEDS: RIVAROXABAN 10 MG TAB (XARELTO) PO SCH (17:43)
[2019-04-04] MEDS: ACETAMINOPHEN 500 MG TAB PO SCH ×2 (05:46→14:32)
[2019-04-04 06:47] VITALS: BP 137/92
[2019-04-04] MEDS: MOM 30ML SUSPENSION UDC PO SCH (09:00)
[2019-04-04] MEDS: MIRALAX *UNIT DOSE* 17GM PACKET PO SCH (09:00)
[2019-04-04] MEDS: RIVAROXABAN 10 MG TAB (XARELTO) PO SCH (16:56)
--- NOTE | 2019-04-08 15:30 | DSES ---
DATE OF ADMISSION: 03/18/2019 DATE OF DISCHARGE: 04/04/2019 ATTENDING PHYSICIAN: Renato Campbell MD DISCHARGE DIAGNOSIS: Right unstable pilon fracture, status post external fixator on 03/18/2019, status post open removal of external fixator and progression to open reduction and internal fixation of right pilon fracture on 03/31/2019. HISTORY This is a 53-year-old male who sustained a right pilon fracture 03/17/2019. He was seen in the emergency room at external fixator was scheduled for 03/18/2019 with a tentative removal of external fixator and progression to open reduction and internal fixation on 03/31/2019. PROCEDURE PERFORMED External fixation of a pilon fracture on the right side on 03/18/2019 and removal of external fixator and open reduction and internal fixation of right pilon fracture 03/31/2019. HOSPITAL COURSE The patient was admitted on the day of injury and subsequently underwent external fixator of his right pilon fracture on 03/18/2019 that was without complications. His hospital course was without complications and he underwent subsequent removal of external fixator and open reduction, internal fixation (ORIF) of his right pilon fracture on 03/31/2019. On the day of discharge, the patient was doing well. He was up with physical therapy per the protocol. He was nonweightbearing to his right lower extremity and is using a walker. He will resume preoperative medications and diet. He is going to use oral medications for pain control. He is going to use PATSY stockings and Xarelto for 30 days postoperatively for DVT prophylaxis. Additionally, he will followup in the office in 2 weeks for wound check and staple removal. For further details please refer to the medical record.
== END 2019-04-04 17:00 | disposition home or self-care (01) | DRG 313 ==
LOC: M ED 10:36 → EDBD 10:36 → M ED INP 14:00 → M MS5PR 15:25
PROVIDERS: ADMIT Orthopaedic Surgery Hand Surgery; ATTEND Orthopaedic Surgery Hand Surgery
PROC: 0QSG35Z Reposition Right Tibia with External Fixation Device, Percutaneous Approach (ICD-10-PCS; principal; 2019-03-18 16:30)
PROC: 0QSG04Z Reposition Right Tibia with Internal Fixation Device, Open Approach (ICD-10-PCS; 2019-03-31)
PROC: 0QSJ04Z Reposition Right Fibula with Internal Fixation Device, Open Approach (ICD-10-PCS; 2019-03-31)
PROC: 0QP Lower Bones, Removal (ICD-10-PCS; 2019-03-31)
DX: S82.871A Displaced pilon fracture of right tibia, initial encounter for closed fracture (principal); S82.831A Other fracture of upper and lower end of right fibula, initial encounter for closed fracture; E78.5 Hyperlipidemia, unspecified; W18.30XA Fall on same level, unspecified, initial encounter; Y92.009 Unspecified place in unspecified non-institutional (private) residence as the place of occurrence of the external cause

== ENCOUNTER 2019-06-27 15:26 | Observation (INO) | payer BC, OTHER ==
[~2019-06-27] VITALS: Ht 180.3 cm; Wt 111.8 kg
[~2019-06-27 15:26] MED LIST changes: +PERC5TAB12 PO; +XARE10TA PO
[2019-06-27] MEDS ORDERED: ATOR1TAB19 PO (15:33)
[2019-06-27 16:33] LABS: BASO # 0.1 10^3/uL (0.0-0.2); EOS # 0.2 10^3/uL (0.0-0.5); EOS % 2.2 % (0.0-3.0); HEMATOCRIT 49.1 % (42.0-52.0); HEMOGLOBIN 16.2 g/dl (13.5-17.5); LYMPH # 3.2 10^3/uL (1.5-5.0); LYMPH % 40.6 % (24.0-44.0); MEAN CORPUSCULAR HEMOGLOBIN 28.6 pg (27.0-33.0); MEAN CORPUSCULAR VOLUME 86.6 fl (80.0-96.0); MONO # 0.7 10^3/uL (0.0-0.8); MONO % 8.8 % (0.0-5.0); NEUTROPHILS # 3.7 10^3/uL (1.5-8.5); NEUTROPHILS % 47.1 % (36.0-66.0); PLATELET COUNT, AUTOMATED 271 10^3/uL (150-450); RED BLOOD COUNT 5.67 10^6/uL (4.30-6.10); WHITE BLOOD COUNT 7.8 10^3/uL (4.0-10.0)
[2019-06-27 16:47] LABS: INR 0.99; PROTHROMBIN TIME 12.8 SECONDS (11.8-14.0)
[2019-06-27 16:48] LABS: PARTIAL THROMBOPLASTIN TIME 31.8 SECONDS (25.0-38.4)
[2019-06-27 17:10] LABS: ALBUMIN 4.2 GM/DL (3.2-5.2); ALT/SGPT 45 U/L (12-78); BILIRUBIN,DIRECT < 0.1 MG/DL (0.0-0.2); BILIRUBIN,TOTAL 0.3 MG/DL (0.2-1.0); C REACTIVE PROTEIN QUANTITATIV 0.46 MG/DL (0.00-0.30); TOTAL PROTEIN 7.7 GM/DL (6.4-8.2)
--- NOTE | 2019-06-27 17:51 | REP ---
Clinical: Prior trauma and surgical fixation with nonhealing wound. Technique: AP, lateral, bilateral oblique views of the right tibia / fibula. Findings: The patient is noted to be status post open reduction and fixation for comminuted ankle fractures. There is an area of irregular periosteal reaction along the medial aspect of the distal tibial metaphysis which is nonspecific. There also appears to be surrounding soft tissue swelling and evidence to suggest nonhealing wound along the anterior margin of the distal lower extremity identified on lateral radiograph. Impression: Findings are nonspecific although cellulitis and possible osteomyelitis cannot definitively be excluded. Electronically Signed by Luiz Patel MD 06/27/2019 05:43 P
[2019-06-27 18:01] LABS: ERYTHROCYTE SEDIMENTATION RATE 2 mm/hr (0-20)
[2019-06-27] MEDS ORDERED: ISOVUE-370 76% 100ML VIAL (Q9967) As Ordered ONE (18:23)
--- NOTE | 2019-06-27 19:00 | REPVR ---
PROCEDURE INFORMATION: Exam: CT Right Lower Extremity With Contrast; Lower Leg Exam date and time: 06/27/2019 6:15 PM Age: 54 years old Clinical indication: Pain; Lower leg; Right; Prior surgery; Surgery date: 1-6 months; Surgery type: Ortho/orif; Additional info: Open wound/swelling/inc pain S/P orif TECHNIQUE: Imaging protocol: CT of the Right lower extremity with intravenous contrast was performed. Exam focused on the lower leg. Radiation optimization: All CT scans at this facility use at least one of these dose optimization techniques: automated exposure control; mA and/or kV adjustment per patient size (includes targeted exams where dose is matched to clinical indication); or iterative reconstruction. Contrast material: ISOVUE 370; Contrast volume: 100 ml; Contrast route: IV; COMPARISON: CR Tibia, Fibula lower leg 06/27/2019 5:07 PM FINDINGS: Limitations: Examination is slightly limited by metallic artifact. Bones/joints: Tibial metallic fixation plates with interlocking fixation screws. Hardware appears intact. Subacute comminuted distal tibial fracture. Associated callus formation. Fracture is partially healed. Fracture lucencies are still visible, and measure up to 11 mm in diameter. Lateral fibular fixation plates with several interlocking screws. Hardware appears intact. Healed distal fibular diaphyseal fracture. Diffuse osteopenia. No evidence of an acute fracture. No dislocation. No definite focus of acute focal cortical erosion. Soft tissues: Subcutaneous edema, most pronounced distally. No soft tissue gas. Scattered punctate calcifications in the soft tissues. No definite rim enhancing abscess, although, assessment is slightly limited due to metallic artifact. Vasculature: Normal enhancement within the popliteal artery. Slight limited evaluation of the anterior tibial and peroneal arteries due to metallic artifact. Normal enhancement of the calf arteries where they are visible. IMPRESSION: 1. Partially healed fixated distal tibial fracture. 2. Healed fixated distal fibular fracture. 3. Subcutaneous edema, most pronounced distally. 4. No definite CT evidence of acute osteomyelitis. Given that this study is slightly limited by metallic artifact, if clinically warranted, consider further assessment with nuclear medicine white blood cell scan. Electronically signed by: Buffy Walsh On 06/27/2019 18:59:56 PM
--- NOTE | 2019-06-27 19:01 | REPVR ---
PROCEDURE INFORMATION: Exam: US Duplex Right Lower Extremity Veins, Limited Exam date and time: 06/27/2019 6:47 PM Age: 54 years old Clinical indication: Swelling (edema) of limb; Lower extremity, right; Prior surgery; Surgery date: 1-6 months; Additional info: Jesus swelling post surg/ro dvt TECHNIQUE: Imaging protocol: Real-time Duplex ultrasound of the Right Lower Extremity with 2-D borges scale, color Doppler flow and spectral waveform analysis with image documentation. Limited exam was focused on the right lower extremity veins. COMPARISON: No relevant prior studies available. FINDINGS: Right deep veins: Unremarkable. The common femoral, femoral, proximal profunda femoral and popliteal veins are patent without thrombus. Normal Doppler waveforms. Normal compressibility and/or augmentation response. Right superficial veins: Unremarkable. Saphenofemoral junction is patent without thrombus. Soft tissues: Unremarkable. IMPRESSION: No evidence of deep vein thrombosis. Electronically signed by: Buffy Walsh On 06/27/2019 19:00:49 PM
[2019-06-27] MEDS ORDERED: ACETAMINOPHEN TAB 650MG DOSE (2X325MG) PO PRN (19:15)
[2019-06-27] MEDS ORDERED: oxyCODONE 5MG TAB PO PRN (19:15)
[2019-06-27] MEDS ORDERED: ceFAZolin SOD 1 GM in D5W MINI-BAG PLUS 50 ML IV ONE (19:45)
[2019-06-27 19:53] LABS: BLOOD UREA NITROGEN 18 MG/DL (7-18); CALCIUM LEVEL 8.9 MG/DL (8.5-10.1); CARBON DIOXIDE LEVEL 25 MEQ/L (21-32); CHLORIDE LEVEL 108 MEQ/L (98-107); CREATININE FOR GFR 0.95 MG/DL (0.70-1.30); GLOMERULAR FILTRATION RATE > 60.0 (>56); GLUCOSE, FASTING 107 MG/DL (70-100); POTASSIUM SERUM 4.2 MEQ/L (3.5-5.1); SODIUM LEVEL 142 MEQ/L (136-145)
--- NOTE | 2019-06-27 20:10 | REP ---
Clinical: Preoperative assessment . Comparison: 03/18/2019 . Findings: The mediastinum and cardiac silhouette are stable and within normal limits for portable technique. The lung loyola are clear without acute consolidation, effusion, or pneumothorax. Skeletal structures are intact. Impression: No acute cardiopulmonary process appreciated. Electronically Signed by Luiz Patel MD 06/27/2019 08:01 P
[2019-06-27 22:16] VITALS: BP 130/96
[2019-06-28] VITALS (7 sets, daily range): BP systolic 117–128; BP diastolic 82–86
[2019-06-28] MEDS: ceFAZolin SOD 1 GM in D5W MINI-BAG PLUS 50 ML IV SCH ×3 (04:16→18:10)
[2019-06-28 06:47] LABS: HEMATOCRIT 48.4 % (42.0-52.0); MEAN CORPUSCULAR HGB CONC 33.1 g/dl (32.0-36.5); MEAN CORPUSCULAR VOLUME 87.8 fl (80.0-96.0); PLATELET COUNT, AUTOMATED 230 10^3/uL (150-450); RED BLOOD COUNT 5.51 10^6/uL (4.30-6.10); WHITE BLOOD COUNT 7.5 10^3/uL (4.0-10.0)
[2019-06-28] MEDS ORDERED: propofoL 200 MG/20 ML VIAL As Ordered ONE (17:10)
[2019-06-28] MEDS ORDERED: LIDOCAINE 2% INJ 100 MG/5 ML SDV (FOR ANES.) As Ordered ONE (17:10)
[2019-06-28] MEDS ORDERED: dexameTHASONE 4 MG/ML 1ML VIAL (J1100) As Ordered ONE (17:11)
[2019-06-28] MEDS ORDERED: ONDANSETRON 4MG/2ML VIAL (J2405) As Ordered ONE (17:11)
[2019-06-28] MEDS ORDERED: fentaNYL 100 MCG/2 ML INJECTION (J3010) As Ordered ONE (17:11)
[2019-06-28] MEDS ORDERED: MIDAZOLAM INJ 2 MG/2 ML VIAL (J2250) As Ordered ONE (17:11)
[2019-06-28] MEDS ORDERED: ceFAZolin 2 GM/D5W 50 ML IV BAG (J0690 PER 500MG) As Ordered ONE (17:48)
[2019-06-28] MEDS ORDERED: BUPIVACAINE/EPIN 0.25% 30 ML VIAL As Ordered ONE (17:54)
[2019-06-28] MEDS ORDERED: ONDANSETRON 4MG/2ML VIAL (J2405) IV PRN (19:00)
[2019-06-28] MEDS ORDERED: fentaNYL 100 MCG/2 ML INJECTION (J3010) IV PRN (19:00)
[2019-06-28] MEDS ORDERED: LR 1,000 ML IV SCH (19:00)
[2019-06-28] MEDS ORDERED: HYDROMORPHONE HCL 0.5 MG/ 0.5 ML SYRINGE (J1170 PER 1) IV PRN (19:00)
[2019-06-28] MEDS ORDERED: oxyCODONE 5MG TAB PO PRN (19:00)
--- NOTE | 2019-06-28 20:17 | HPE ---
DATE OF SERVICE: 06/28/2019 CHIEF COMPLAINT: Right ankle pain. Santiago presents today after being about 3 months status post right open reduction, internal fixation for pilon injury. He says that while a number of incision have healed well, he always had a small area of eschar over the anterolateral incision that is about the size of a quarter that the sleeve fell off and he said he had some purulent discharge and increased pain and swelling and some numbness or tingling to the top of his foot. Denies any new injury, any fevers, chills, nausea, or vomiting. He has still been using crutches for ambulation and a CAM boot. He says there was some purulent drainage, but it has not been excessive. Denies any fevers, chills, nausea, or vomiting. A 10-system review was negative. Pertinent positives and negatives in history of present illness (HPI). All other systems negative. ALLERGIES: No known drug allergies. MEDICATIONS: Patient was on a statin. PAST MEDICAL HISTORY: Hyperlipidemia. PAST SURGICAL HISTORY: 1. Appendectomy. 2. Tonsillectomy. SOCIAL HISTORY: Lives at home with his . Is a nonsmoker. PHYSICAL EXAMINATION: Patient is awake, alert, oriented, well dressed with good affect. Breathing on room air. Normocephalic, atraumatic. On right lower extremity, there is a small area of superficial wound, about 1-1.5 cm in diameter. It does not probe deep. There appears to be some serous drainage . There is no surrounding erythema, fluctuance. Unable to express any drainage. Surrounding incision are well healed. Positive extensor hallucis longus (EHL), flexor hallucis longus (FHL), tibialis anterior, and gastroc motor function. There is minimal swelling at this time. Sensation intact to light touch in superficial peroneal, deep peroneal, sural, saphenous, tibial distributions. X-ray reviewed demonstrating maintained hardware alignment with interval fracture healing and significant callus development. CT reviewed demonstrating no obvious deep collections. Maintained hardware and fracture alignment with interval healing. LABORATORY DATA: White cell count is 7.5, ESR is 2. CRP is 0.46 mg/dL. ASSESSMENT: At this point in time, it appears that he might have a small area of soft tissue cellulitis. At this point, I am not particularly concerned with it. He has been on antibiotics; however, in order to be aggressive in his treatment, since he is just having symptoms for a few days, to prevent any sort of deep infections from spreading, we will take him back to the operating room (OR) today. He will be nothing by mouth. We will plan to do an irrigation and debridement of the superficial wound with possible wound vacuum-assisted closure (VAC) placement versus wet-to-dry dressing changes versus primary closure. Patient expressed understanding and agreement with this plan. We discussed risks and benefits, including, but not limited, infection, damage to surrounding structures, and need for further surgery, and the patient wished to proceed. He is also weight bear as tolerated. BILL
[2019-06-29 02:00] VITALS: BP 129/82
[2019-06-29] MEDS: ceFAZolin SOD 1 GM in D5W MINI-BAG PLUS 50 ML IV SCH ×3 (03:50→20:34)
[2019-06-29 06:00] VITALS: BP 127/83
[2019-06-29 10:00] VITALS: BP 126/82
[2019-06-29 14:00] VITALS: BP 126/84
[2019-06-29 18:00] VITALS: BP 126/84
[2019-06-29 22:00] VITALS: BP 118/82
[2019-06-30 02:00] VITALS: BP 117/93
[2019-06-30] MEDS: ceFAZolin SOD 1 GM in D5W MINI-BAG PLUS 50 ML IV SCH ×2 (04:27→11:19)
[2019-06-30 06:00] VITALS: BP 118/89
[2019-06-30] MEDS ORDERED: KEFL500C17 PO (08:01)
--- NOTE | 2019-06-30 09:36 | RO ---
DATE OF PROCEDURE: 06/28/2019 PREOPERATIVE DIAGNOSIS: Right postoperative wound. POSTOPERATIVE DIAGNOSIS: Right postoperative wound. PROCEDURE: Right leg skin, subcutaneous tissue, muscle and fascia debridement with irrigation, debridement and wound Vac application. SURGEON: Dr. Renato Campbell VENDING ATTENDANT: ANESTHESIA: Monitored sedation. INDICATIONS: 54-year-old male that underwent an open reduction internal fixation (ORIF) of pilon approximately three months ago and had a small area of the anterolateral incision that did not heal. The patient was concerned with some purulent drainage and increased swelling and pain. The decision was made to undergo a debridement to help assess the extent of the infection and need for further intervention. CT scan preoperatively demonstrated that there was no deep collection or sinus tract leading down to the hardware or fracture point. We discussed the risks and benefits of surgery, including but not limited to infection, damage to surrounding structures, incomplete relief and patient wished to proceed. PREOPERATIVE ANTIBIOTICS: 2 grams of Ancef. COMPLICATIONS: None. ESTIMATED BLOOD LOSS: Minimal. OPERATIVE DESCRIPTION: Patient was brought back to the OR in a supine position, underwent monitored anesthesia. At this point, we had a time out confirming site, side and surgery. We then injected 30 mL of 0.25% Marcaine with epinephrine surrounding the wound. We then prepped and draped the right leg in the usual manner. We used the right leg to gravity to exsanguinate the wound and elevated the tourniquet up to 250 mmHg. We then used a curette to debride the skin, subcutaneous tissue, muscle and fascia. The wound prior to intervention was about 2 cm in length and 1 cm in width and about a 0.5 cm deep. After we sharply debrided using curette and scalpel and we removed some skin edges as there was slight undermining of the edge of the wound, it was about 3 cm in length, 1.5 cm in width and 1.0 cm in depth. We then irrigated the wound thoroughly with a liter of saline. There was no obvious purulence. Cultures were taken intraoperatively, at which point, due to the quality of tissue, I expected to heal it by secondary intention. The skin was then too tight to close. Therefore, we placed a wound Vac in place, secured it and placed it on seal with 125 mm of negative pressure continuous. The patient was then awakened and taken to the postanesthesia care unit (PACU) in stable condition. POSTOPERATIVE PLAN: The patient will continue the wound Vac. He will be discharged with wound Vac care. He will followup in the office in 2 weeks for repeat exam of the wound. He will continue with IV Ancef while admitted and switched over to Keflex on discharge. If the cultures grow and we need to change antibiotics, we will do so at that point. The patient is weight bearing as tolerated. He expressed understanding and agreement at this point ahead of time.
[2019-06-30] MEDS ORDERED: CEPHALEXIN 500 MG CAP PO ONE (12:00)
--- NOTE | 2019-07-02 08:50 | DSES ---
DATE OF ADMISSION: 06/27/2019 DATE OF DISCHARGE: 06/30/2019 ATTENDING PHYSICIAN: Dr. Renato Campbell. ADMISSION DIAGNOSIS: Right lower extremity postoperative wound. OTHER DIAGNOSES: Hyperlipidemia. DISCHARGE DIAGNOSIS: Right lower extremity postoperative wound status post skin and subcutaneous tissue, muscle and fascia irrigation and debridement and wound VAC application. HOSPITAL COURSE: This is 54-year-old male patient who underwent an open reduction internal fixation of a pilon fracture about [address] Renato Campbell. He was found to have some purulent drainage and difficulty with wound healing over one of the surgical incisions and was consented for irrigation and debridement with wound VAC complication over the area. The patient was admitted on the day of surgery and underwent the above procedure, which was without complication. Postoperative hospital course was uneventful. He was discharged with wound VAC care and Keflex after IV antibiotics were administered inpatient. Pain was controlled on the day of discharge and he will resume preoperative medications along with oral pain medications for pain control as needed. Discharge instructions to include but not limited to wound monitoring and activity limitations were provided. The patient will follow up with Dr. Campbell in 2 weeks for repeat examination of the wound. Antibiotics will be potentially adjusted based on any findings in intraoperative cultures. Please refer to the medical record for further details.
== END 2019-06-30 14:05 | disposition home health service (06) ==
LOC: M ED 15:26 → M ED INP 15:27 → ENRESERVDT 20:13 → ENRESERVTM 20:13 → M MS5PR 21:56
PROVIDERS: ADMIT Orthopaedic Surgery Hand Surgery; ATTEND Orthopaedic Surgery Hand Surgery
DX: T81.49XA Infection following a procedure, other surgical site, initial encounter (principal); B95.61 Methicillin susceptible Staphylococcus aureus infection as the cause of diseases classified elsewhere; E78.49 Other hyperlipidemia; Z79.899 Other long term (current) drug therapy
CPT/HCPCS: 11043; 36415; 71045; 73590; 73701; 80047; 80048; 80076; 83605; 85025; 85027; 85610; 85652; 85730; 86140; 87040; 87070; 87075; 87077; 87186; 87205; 93971; 96365; 96366; 99283; J0690; J1100; J2250; J2405; J3010; Q9967

== ENCOUNTER → 2020-01-26 | Outpatient (REF) | payer BC, OTHER ==
[~2020-01-26] MED LIST changes: +KEFL500C17 PO
== END ==
LOC: M WUC 18:55 → EEVIPCON 18:55
PROVIDERS: ATTEND Physician Assistant
DX: L08.9 Local infection of the skin and subcutaneous tissue, unspecified (principal); L02.414 Cutaneous abscess of left upper limb

== ENCOUNTER → 2021-01-11 | Outpatient (CLI) | payer BC, OTHER ==
[~2021-01-11] MED LIST changes: +E-Z-GAS II EFFERVESCENT PACKET (SODIUM BICARB./CITRIC ACID/SIMETHICONE) As Ordered ONE; +E-Z-HD 98% w/w 340GM SUSP BTL As Ordered ONE; +E-Z-PAQUE 96% w/w SUSP 176GM BTL As Ordered ONE
--- NOTE | 2021-01-11 16:49 | REP ---
INDICATION: GERD. COMPARISON: None TECHNIQUE: This procedure was performed by Ghada Arrieta, [facility], under the direct supervision of Dr. Herrera. Images were reviewed with Dr. Herrera prior to dictation. Liquid barium and gas producing crystals were given in the erect position, as well as liquid barium in the prone oblique position in order to perform a double contrast esophagram examination. FINDINGS: A single view PA chest x-ray is submitted as a web interface developer film. The superior mediastinal structures are midline. The heart size is within normal limits. The lungs are clear. The oral and pharyngeal stages of deglutition were unremarkable. There is a soft tissue mass at the level of the epiglottis to the right of midline, measuring approximately 2 cm. There is no stricture of the cervical esophagus, however there is some mucosal irregularity in the area. Esophageal transport is prompt and efficient and there is no evidence of stricture, or mucosal ring. There is no evidence of a hiatal hernia. Gastroesophageal reflux was visualized to the level of the thoracic inlet. IMPRESSION: 1. 2 cm soft tissue mass to the right midline at the level of the epiglottis. No stricture is visualized, however there is mucosal irregularity in the area of the mass. 2. Gastroesophageal reflux to the level of thoracic inlet. 0.4 minutes of fluoroscopy time was utilized for this procedure. Some fluoroscopic images are performed with last image hold technology. These images require no additional radiation. <Electronically signed by Ghada Arrieta > 01/11/21 1611 <Electronically signed by Andres Herrera > 01/11/21 [id number]
== END ==
LOC: M RAD 09:04
PROVIDERS: ATTEND Otolaryngology
DX: K21.9 Gastro-esophageal reflux disease without esophagitis (principal); R22.1 Localized swelling, mass and lump, neck; K14.8 Other diseases of tongue

== ENCOUNTER → 2021-01-14 | Outpatient (CLI) | payer BC, OTHER ==
[~2021-01-14] MED LIST changes: -E-Z-GAS II EFFERVESCENT PACKET (SODIUM BICARB./CITRIC ACID/SIMETHICONE) As Ordered ONE; -E-Z-HD 98% w/w 340GM SUSP BTL As Ordered ONE; -E-Z-PAQUE 96% w/w SUSP 176GM BTL As Ordered ONE
== END ==
LOC: M LABSMTC 10:12
PROVIDERS: ATTEND Anesthesiology
DX: Z01.812 Encounter for preprocedural laboratory examination (principal); Z20.822 Contact with and (suspected) exposure to COVID-19

== ENCOUNTER → 2021-01-14 | Outpatient (CLI) | payer BC, OTHER ==
[~2021-01-14] MED LIST changes: +ISOVUE-370 76% 100ML VIAL ONE; +OMEP-221 PO; +PRED20TA PO
--- NOTE | 2021-01-17 20:27 | REPVR ---
PROCEDURE INFORMATION: Exam: CT Neck With Contrast Exam date and time: 01/14/2021 11:03 AM Age: 55 years old Clinical indication: Dysphagia / difficulty swallowing; Additional info: Swelling/mass/lump in neck TECHNIQUE: Imaging protocol: Computed tomography images of the neck with contrast. Radiation optimization: All CT scans at this facility use at least one of these dose optimization techniques: automated exposure control; mA and/or kV adjustment per patient size (includes targeted exams where dose is matched to clinical indication); or iterative reconstruction. Contrast material: ISOVUE 370; Contrast volume: 75 ml; Contrast route: INTRAVENOUS (IV); COMPARISON: XA Esophagram Barium Swallow 01/11/2021 9:17 AM FINDINGS: Nasopharynx: Unremarkable. Oropharynx: Series 2 images 51 to 58, sagittal images 28 to 35 and coronal images 45 to 48 demonstrate a large mass at the base of the tongue and filling the vallecula on the right. Dimensions on axial images are 2.7 by 2.0 cm. Craniocaudad dimension is 2.5 cm. Hypopharynx: Unremarkable. Larynx: Unremarkable. Normal epiglottis. Retropharyngeal space: Unremarkable. Submandibular/Parotid glands: Normal. Glands are normal in size. Thyroid: Normal. No enlarged or calcified nodules. Lymph nodes: There is a level 2 right jugular lymph node measuring 13 mm. No larger lymph nodes are seen. Trachea: Visualized trachea is unremarkable. Lungs: Unremarkable as visualized. Bones/joints: Unremarkable. No acute fracture. Soft tissues: Unremarkable. No significant soft tissue swelling. IMPRESSION: 1. 2.7 x 2.0 x 2.5 cm mass at the base of the tongue, filling the vallecula on the right. ENT direct visualization recommended. 2. 13 mm level 2 right jugular lymph node. Although this is within upper limits of normal, the possibility of a metastatic lymph node cannot be excluded. Electronically signed by: Kenneth Alonzo On 01/17/2021 20:27:01 PM
== END ==
LOC: M PLAIMG 10:23
PROVIDERS: ATTEND Otolaryngology
DX: K21.9 Gastro-esophageal reflux disease without esophagitis (principal); D37.02 Neoplasm of uncertain behavior of tongue
CPT/HCPCS: 70491; Q9967

== ENCOUNTER 2021-01-19 07:12 | Day surgery (SDC) | payer BC, OTHER ==
[~2021-01-19] VITALS: Ht 182.9 cm; Wt 111.4 kg
[2021-01-19] VITALS (8 sets, daily range): BP systolic 113–139; BP diastolic 64–89
[~2021-01-19 07:12] MED LIST changes: -ISOVUE-370 76% 100ML VIAL ONE; +LR 1,000 ML IV ONE
--- OUTSIDE RECORDS SUMMARY | 2021-01-19 07:17 | CCD | Continuity of Care Document ---
Author Author Santiago JAQUEZ MD Organization Unknown Address [address] [facility] [address] [place] [address] Phone [phone] Care Team Providers Care Biscuit Factory Worker Name Role Phone Phi Pham M.D. AUTM [phone] Marcio Jaquez M.D. AUTM [phone] Central Scheduling AUTM [phone] Problems Description No Active Problems Social History Type Date Description Comments Sex Unknown ETOH Use 3 A Week Tobacco Use Start: Unknown Patient has never smoked Recreational Drug Use Denies Drug Use Allergies and adverse reactions Description No Known Drug Allergies Medications Active Medications SIG Qnty Indications Ordering Provide r Date Prednisone 20mg Tablets 1 by mouth every day 7tabs Marcio Jaquez MD 01/12/[address] 1 by mouth bid 60caps Marcio Jaquez MD 12/30/2020 History Medications No Active Medications Unknown - 12/30/2020 Immunizations Description No Information Available Vital Signs Date Vital Result Comment 01/18/2021 7:52am Height 71 inches 5'11" Weight 246.00 lb BMI (Body Mass Index) 34.3 kg/m2 [place] Body Weight 172 lb Weight 111.586 kg BSA (Body Surface Area) 2.30 m2 01/12/2021 1:38pm Height 71 inches 5'11" Weight 248.00 lb BMI (Body Mass Index) 34.6 kg/m2 [place] Body Weight 172 lb Weight 112.493 kg BSA (Body Surface Area) 2.31 m2 Results Description No Information Available Procedures Date Code Description Status 01/12/2021 37960 Laryngoscopy Flexible Fiberoptic Diagnostic Completed Medical Devices Description No Information Available Encounters Description No Information Available Assessments Date Code Description Provider 01/12/2021 R22.1 Localized swelling, mass and lum p, neck Marcio Jaquez MD 12/30/2020 R22.1 Localized swelling, mass and lum p, neck Marcio Jaquez MD 12/30/2020 K21.9 Gastro-esophageal reflux disease without esophagitis Marcio Jaquez MD 12/30/2020 R13.10 Dysphagia, unspecified Marcio carroll MD Plan of Treatment Future Appointment(s):* 01/25/2021 2:20 pm - Marcio Jaquez MD at [facility] * 01/19/2021 12:30 pm - Marcio Jaquez MD at [facility] Functional Status Description No Information Available Mental Status Description No Information Available Referrals Description No Information Available
--- OUTSIDE RECORDS SUMMARY | 2021-01-19 07:18 | CCD | Continuity of Care Document ---
Author Author Santaigo JAQUEZ MD Organization Unknown Address [address] [facility] [address] [place] [address] Phone [phone] Care Team Providers Care Harvest Supervisor Name Role Phone Phi Pham M.D. AUTM [phone] Marcio Jaquez M.D. AUTM [phone] Problems Description No Active Problems Social History Type Date Description Comments Sex Unknown ETOH Use 3 A Week Tobacco Use Start: Unknown Patient has never smoked Recreational Drug Use Denies Drug Use Allergies, Adverse Reactions, Alerts Description No Known Drug Allergies Medications Active Medications SIG Qnty Indications Ordering Provide r Date Omeprazole 40mg Capsules DR 1 by mouth bid 60caps Marcio Jaquez MD 12/30/2020 History Medications No Active Medications Unknown - 12/30/2020 Immunizations Description No Information Available Vital Signs Date Vital Result Comment 12/30/2020 12:55pm Height 71 inches 5'11" Weight 245.00 lb BMI (Body Mass Index) 34.2 kg/m2 [place] Body Weight 172 lb Weight 111.132 kg BSA (Body Surface Area) 2.30 m2 10/01/2018 2:58pm BP Systolic 132 mmHg BP Diastolic 84 mmHg Height 71 inches 5'11" Weight 245.00 lb BMI (Body Mass Index) 34.2 kg/m2 [place] Body Weight 172 lb Weight 111.132 kg BSA (Body Surface Area) 2.30 m2 Results Description No Information Available Procedures Description No Information Available Medical Devices Description No Information Available Encounters Description No Information Available Assessments Description No Information Available Plan of Treatment No Information Available Functional Status Description No Information Available Mental Status Description No Information Available Referrals Description No Information Available
--- OUTSIDE RECORDS SUMMARY | 2021-01-19 07:18 | CCD | Continuity of Care Document ---
Author Author Santiago SANTIAGO Organization Unknown Address [address] [place] [address] Phone [phone] Problems Description No Active Problems Social History Type Date Description Comments Sex Unknown ETOH Use Occasionally consumes alcohol Tobacco Use Start: Unknown Patient has never smoked Tobacco Use Start: Unknown The Patient Has Never Vaped Smoking Status Reviewed: 10/31/20 The Patient Has Never Vaped Allergies, Adverse Reactions, Alerts Description No Known Drug Allergies Medications Active Medications SIG Qnty Indications Ordering Provide r Date Doxycycline Monohydrate 100mg Caps ules 1 cap by mouth twice a day for 10 days 20caps L03.114 Col zac Villasenor JR., M.D. 10/31/2020 Mupirocin 2% Ointment apply to affected area on face twice daily as directed 22gm L03.114 Gerry Villasenor JR., M.D. 10/31/2020 Multivitamin Adult Unknown 00 Immunizations Description No Information Available Vital Signs Date Vital Result Comment 10/31/2020 10:58am BP Systolic 24 mmHg BP Diastolic 88 mmHg Heart Rate 86 /min Respiratory Rate 16 /min O2 % BldC Oximetry 96 % Body Temperature 97.3 F Weight 225.00 lb Height 71 inches 5'11" BMI (Body Mass Index) 31.4 kg/m2 Pain Level 5 01/26/2020 5:24pm BP Systolic 125 mmHg BP Diastolic 90 mmHg Heart Rate 84 /min Respiratory Rate 18 /min O2 % BldC Oximetry 95 % Body Temperature 98.3 F Weight 235.00 lb Height 71 inches 5'11" BMI (Body Mass Index) 32.8 kg/m2 Pain Level 6 Results Description No Information Available Procedures Date Code Description Status 10/31/2020 76713 Office/Outpatient Established Anna baumann [facility] 20-29 Min Completed Medical Devices Description No Information Available Encounters Type Date Location Provider Dx Diagnosis Office Visit 10/31/2020 10:00a Main Office Salazar Campos L0 3.114 Cellulitis of left upper limb Assessments Date Code Description Provider 10/31/2020 L03.114 Cellulitis of left upper limb Salazar Capps 06/02/2020 Z20.828 Contact with and (mariano spected) exposure to other viral communicable diseases Salazar Campos Plan of Treatment 10/31/2020 - Salazar Campos* L03.114 Cellulitis of left upper limb* New Medication:* Doxycycline Monohydrate 100 mg - 1 cap by mouth twice a day for 10 days * Mupirocin 2 % - apply to affected area on face twice daily as directed * Comments:* antibiotics as prescribedtopical mupirocin to any open sores Monitorsigns/symptoms of worsening infection discussedReturn as needed for any concerns Functional Status Description No Information Available Mental Status Description No Information Available Referrals Description No Information Available
--- OUTSIDE RECORDS SUMMARY | 2021-01-19 07:18 | CCD | Continuity of Care Document ---
Author Author Santiago LOWE [facility] Unknown Address [address] [place] [address] [place] [address] Phone [phone] Problems Description No Active Problems Social History Type Date Description Comments Sex Unknown ETOH Use Occasionally consumes alcohol Tobacco Use Start: Unknown Patient has never smoked Tobacco Use Start: Unknown The Patient Has Never Vaped Smoking Status Reviewed: 10/31/20 The Patient Has Never Vaped Allergies, Adverse Reactions, Alerts Description No Known Drug Allergies Medications Active Medications SIG Qnty Indications Ordering Provide r Date Multivitamin Adult Unknown History Medications Doxycycline Monohydrate 100mg Caps ules 1 cap by mouth twice a day for 10 days 20caps L03.114 Col zac Villasenor JR., M.D. 10/31/2020 - 11/09/2020 Mupirocin 2% Ointment apply to affected area on face twice daily as directed 22gm L03.114 Gerry Villasenor JR., M.D. 10/31/2020 - 11/09/2020 Immunizations Description No Information Available Vital Signs [...] Available Procedures Date Code Description Status 10/31/2020 89514 Office/Outpatient Established Lo w MDM 20-29 Min Completed Medical Devices Description No Information Available Encounters Type Date Location Provider Dx Diagnosis Office Visit 10/31/2020 10:00a Main Office Surendra Bella, P.A. L0 3.114 Cellulitis of left upper limb Assessments Date Code Description Provider 12/17/2020 Z20.828 Contact with and (mariano spected) exposure to other viral communicable diseases BRODY Erazo 10/31/2020 L03.114 Cellulitis of left upper limb Kristina Bella, P.A. Plan of Treatment No Information Available Functional Status Description No Information Available Mental Status Description No Information Available Referrals Description No Information Available
--- OUTSIDE RECORDS SUMMARY | 2021-01-19 07:18 | CCD | Continuity of Care Document ---
Author Author Santiago JAQUEZ MD Organization Unknown Address [address] [facility] [address] [place] [address] Phone [phone] Care Team Providers Care Transportation Maintenance Operator Name Role Phone Phi Pham M.D. AUTM [phone] Marcio Jaquez M.D. AUTM [phone] Central Scheduling AUTM [phone] Problems Description No Active Problems Social History [...] lb BMI (Body Mass Index) 34.3 kg/m2 [place] Body Weight 172 lb Weight 111.586 kg BSA (Body Surface Area) 2.30 m2 01/12/2021 1:38pm Height 71 inches 5'11" Weight 248.00 lb BMI (Body Mass Index) 34.6 kg/m2 [place] Body Weight 172 lb Weight 112.493 kg BSA (Body Surface Area) 2.31 m2 Results Description No Information Available Procedures Date Code Description Status 01/12/2021 43522 Laryngoscopy Flexible Fiberoptic Diagnostic Completed Medical Devices [...] 2:20 pm - Marcio Jaquez MD at [facility] * 01/19/2021 12:30 pm - Marcio Jaquez MD at [facility] Functional Status Description No Information Available Mental Status Description No Information Available Referrals Description No Information Available
--- OUTSIDE RECORDS SUMMARY | 2021-01-19 07:18 | CCD | Continuity of Care Document ---
Author Author Santiago JAQUEZ MD Organization Unknown Address [address] [facility] [address] [place] [address] Phone [phone] Care Team Providers Care Investigation Clerk Name Role Phone Phi Pham M.D. AUTM [phone] Marcio Jaquez M.D. AUTM [phone] Central Scheduling AUTM [phone] Problems Description No Active Problems Social History [...] Available Vital Signs Date Vital Result Comment 01/12/2021 1:38pm Height 71 inches 5'11" Weight 248.00 lb BMI (Body Mass Index) 34.6 kg/m2 [place] Body Weight 172 lb Weight 112.493 kg BSA (Body Surface Area) 2.31 m2 12/30/2020 12:55pm Height 71 inches 5'11" Weight 245.00 lb BMI (Body Mass Index) 34.2 kg/m2 [place] Body Weight 172 lb Weight 111.132 kg [...] carroll MD Plan of Treatment Future Appointment(s):* 01/19/2021 12:30 pm - Marcio Jaquez MD at [facility] * 01/20/2021 7:00 am - Marcio Jaquez MD at [facility] 01/12/2021 - Marcio Jaquez MD* R22.1 Localized swelling, mass and lump, neck * All * New Medication:* Prednisone 20 mg - 1 by mouth every day Functional Status Description No Information Available Mental Status Description No Information Available Referrals Description No Information Available
--- OUTSIDE RECORDS SUMMARY | 2021-01-19 07:18 | CCD | Continuity of Care Document ---
Author Author Santiago LOWE [facility] Unknown Address [address] [place] [address] [place] [address] Phone [phone] Problems Description No Active Problems Social History [...] Available Procedures Date Code Description Status 10/31/2020 96030 Office/Outpatient Established Lo w MDM 20-29 Min Completed Medical Devices Description No Information Available Encounters Type Date Location Provider Dx Diagnosis Office Visit 10/31/2020 10:00a Main Office Salazar Campos L0 3.114 Cellulitis of left upper limb Assessments Date Code Description Provider 10/31/2020 L03.114 Cellulitis of left upper limb Salazar Capps Plan of Treatment 10/31/2020 - Salazar Campos* [...]
--- OUTSIDE RECORDS SUMMARY | 2021-01-19 07:18 | CCD | Continuity of Care Document ---
Author Author Santiago SANTIAGO Organization Unknown Address [address] [place] [address] Phone [phone] Problems Description No Active Problems Social History [...] Available Procedures Date Code Description Status 10/31/2020 36968 Office/Outpatient Established Anna baumann [facility] 20-29 Min Completed Medical Devices Description No [...]
--- OUTSIDE RECORDS SUMMARY | 2021-01-19 07:18 | CCD | Continuity of Care Document ---
Author Author Santiago JAQUEZ MD Organization Unknown Address [address] [facility] [address] [place] [address] Phone [phone] Care Team Providers Care Vehicle Body Sander Name Role Phone Phi Pham M.D. AUTM [phone] Marcio Jaquez M.D. AUTM [phone] Central Scheduling AUTM [phone] Problems Description No Active Problems Social History [...] lb BMI (Body Mass Index) 34.6 kg/m2 [place] Body Weight 172 lb Weight 112.493 kg BSA (Body Surface Area) 2.31 m2 12/30/2020 12:55pm Height 71 inches 5'11" Weight 245.00 lb BMI (Body Mass Index) 34.2 kg/m2 [place] Body Weight 172 lb Weight 111.132 kg [...] 12:30 pm - Marcio Jaquez MD at [facility] * 01/20/2021 7:00 am - Marcio Jaquez MD at [facility] 01/12/2021 - Marcio Jaquez MD* R22.1 Localized swelling, mass and lump, neck * All * New Medication:* Prednisone 20 mg - 1 by mouth every day Functional Status Description No Information Available Mental Status Description No Information Available Referrals Description No Information Available
--- OUTSIDE RECORDS SUMMARY | 2021-01-19 07:18 | CCD ---
Author Author [facility] Organization [facility] Address Unknown Phone Unavailable Care Team Providers Care Parts Identification Technician Name Role Phone MCELHERFRANKIE, JADA PA Unavailable Unavailable MCELHERAN, JADA PA Unavailable Unavailable MCELHERAN, JADA PA Unavailable Unavailable MCELHERAN, JADA PA Unavailable Unavailable MCELHERAN, JADA PA Unavailable Unavailable MCELHERAN, JADA PA Unavailable Unavailable MCELHERAN, JADA PA Unavailable Unavailable MCELHERAN, JADA PA Unavailable Unavailable MCELHERAN, JADA PA Unavailable Unavailable MCELHERAN, JADA PA Unavailable Unavailable MCELHERAN, JADA PA Unavailable Unavailable MCELHERAN, JADA PA Unavailable Unavailable MCELHERAN, JADA PA Unavailable Unavailable MCELHERAN, JADA PA Unavailable Unavailable MCELHERAN, JADA PA Unavailable Unavailable MCELHERAN, JADA PA Unavailable Unavailable MCELHERAN, JADA PA Unavailable Unavailable MCELHERAN, JADA PA Unavailable Unavailable MCELHERAN, JADA PA Unavailable Unavailable MCELHERAN, JADA PA Unavailable Unavailable MCELHERAN, JADA PA Unavailable Unavailable MCELHERAN, JADA PA Unavailable Unavailable MCELHERAN, JADA PA Unavailable Unavailable MCELHERAN, JADA PA Unavailable Unavailable MCELHERAN, JADA PA Unavailable Unavailable MCELHERAN, JADA PA Unavailable Unavailable MCELHERAN, JADA PA Unavailable Unavailable MCELHERAN, JADA PA Unavailable Unavailable MCELHERAN, JADA PA Unavailable Unavailable OLGA AC Unavailable Unavailable Hedrick, Yusra Jessica PA Unavailable Unavailable Hedrick, Yusra Jessica PA Unavailable Unavailable Hedrick, Yusra Jessica PA Unavailable Unavailable Hedrick, Yusra Jessica PA Unavailable Unavailable Hedrick, Yusra Jessica PA Unavailable Unavailable Hedrick, Yusra Jessica PA Unavailable Unavailable Hedrick, Yusra Jessica PA Unavailable Unavailable Hedrick, Yusra Jessica PA Unavailable Unavailable Hedrick, Yusra Jessica PA Unavailable Unavailable Hedrick, Yusra Jessica PA Unavailable Unavailable ISAACS SR, JADA CAMPOS MD Unavailable Unavailable ISAACS SR, JADA CAMPOS MD Unavailable Unavailable ISAACS SR, JADA CAMPOS MD Unavailable Unavailable ISAACS SR, JADA CAMPOS MD Unavailable Unavailable ISAACS SR, JADA CAMPOS MD Unavailable Unavailable ISAACS SR, JADA CAMPOS MD Unavailable Unavailable ISAACS SR, JADA CAMPOS MD Unavailable Unavailable ISAACS SR, JADA CAMPOS MD Unavailable Unavailable ISAACS SR, JADA CAMPOS MD Unavailable Unavailable ISAACS SR, JADA CAMPOS MD Unavailable Unavailable ISAACS SR, JADA CAMPOS MD Unavailable Unavailable ISAACS SR, JADA CAMPOS MD Unavailable Unavailable ISAACS SR, JADA CAMPOS MD Unavailable Unavailable ISAACS SR, JADA CAMPOS MD Unavailable Unavailable ISAACS SR, JADA CAMPOS MD Unavailable Unavailable ISAACS SR, JADA CAMPOS MD Unavailable Unavailable ISAACS SR, JADA CAMPOS MD Unavailable Unavailable ISAACS SR, JADA CAMPOS MD Unavailable Unavailable ISAACS SR, JADA CAMPOS MD Unavailable Unavailable ISAACS SR, JADA CAMPOS MD Unavailable Unavailable ISAACS SR, JADA CAMPOS MD Unavailable Unavailable ISAACS SR, JADA CAMPOS MD Unavailable Unavailable ISAACS SR, JADA CAMPOS MD Unavailable Unavailable ISAACS SR, JADA CAMPOS MD Unavailable Unavailable ISAACS SR, JADA CAMPOS MD Unavailable Unavailable ISAACS SR, JADA CAMPOS MD Unavailable Unavailable ISAACS SR, JADA CAMPOS MD Unavailable Unavailable ISAACS SR, JADA CAMPOS MD Unavailable Unavailable ISAACS SR, JADA CAMPOS MD Unavailable Unavailable ISAACS SR, JADA CAMPOS MD Unavailable Unavailable ISAACS SR, JADA CAMPOS MD Unavailable Unavailable ISAACS SR, JADA CAMPOS MD Unavailable Unavailable ISAACS SR, JADA CAMPOS MD Unavailable Unavailable ISAACS SR, JADA CAMPOS MD Unavailable Unavailable ISAACS SR, JADA CAMPOS MD Unavailable Unavailable ISAACS SR, AJDA CAMPOS MD Unavailable Unavailable ISAACS SR, JADA CAMPOS MD Unavailable Unavailable ISAACS SR, JADA CAMOPS MD Unavailable Unavailable ISAACS SR, JADA CAMPOS MD Unavailable Unavailable ISAACS SR, JADA CAMPOS MD Unavailable Unavailable ISAACS SR, JADA CAMPOS MD Unavailable Unavailable ISAACS SR, JADA CAMPOS MD Unavailable Unavailable ISAACS SR, JADA CAMPOS MD Unavailable Unavailable ISAACS SR, JADA CAMPOS MD Unavailable Unavailable ISAACS SR, JADA CAMPOS MD Unavailable Unavailable ISAACS SR, JADA CAMPOS MD Unavailable Unavailable ISAACS SR, JADA CAMPOS MD Unavailable Unavailable ISAACS SR, JADA CAMPOS MD Unavailable Unavailable ISAACS SR, JADA CAMPOS MD Unavailable Unavailable ISAACS SR, JADA CAMPOS MD Unavailable Unavailable ISAACS SR, JADA CAMPOS MD Unavailable Unavailable ISAACS SR, JADA CAMPOS MD Unavailable Unavailable ISAACS SR, JADA CAMPOS MD Unavailable Unavailable ISAACS SR, JADA CAMPOS MD Unavailable Unavailable ISAACS SR, JADA CAMPOS MD Unavailable Unavailable ISAACS SR, JADA CAMPOS MD Unavailable Unavailable JACK, KATYA PA Unavailable Unavailable JACK, KATYA PA Unavailable Unavailable JACK, KATYA PA Unavailable Unavailable JACK, KATYA PA Unavailable Unavailable JACK, KATYA PA Unavailable Unavailable JACK, KATYA PA Unavailable Unavailable JACK, KATYA PA Unavailable Unavailable JACK, KATYA PA Unavailable Unavailable JACK, KATYA PA Unavailable Unavailable JACK, KATYA PA Unavailable Unavailable JACK, KATYA PA Unavailable Unavailable JACK, KATYA PA Unavailable Unavailable JACK, KATYA PA Unavailable Unavailable JACK, KATYA PA Unavailable Unavailable JACK, KATYA PA Unavailable Unavailable JACK, KATYA PA Unavailable Unavailable JACK, KATYA PA Unavailable Unavailable JACK, KATYA PA Unavailable Unavailable JACK, KATYA PA Unavailable Unavailable JACK, KATYA PA Unavailable Unavailable JACK, KATYA PA Unavailable Unavailable JACK, KATYA PA Unavailable Unavailable JACK, KATYA PA Unavailable Unavailable JACK, KATYA PA Unavailable Unavailable JACK, KATYA PA Unavailable Unavailable JACK, KATYA PA Unavailable Unavailable JACK, KATYA PA Unavailable Unavailable JACK, KATYA PA Unavailable Unavailable JACK, KATYA PA Unavailable Unavailable JACK, KATYA PA Unavailable Unavailable JACK, KATYA PA Unavailable Unavailable JACK, KATYA PA Unavailable Unavailable JACK, KATYA PA Unavailable Unavailable JACK, KATYA PA Unavailable Unavailable JACK, KATYA PA Unavailable Unavailable JACK, KATYA PA Unavailable Unavailable Re-disclosure Warning The records that you are about to access may contain information from federally-assisted alcohol or drug abuse programs. If such information is present, then the following federally mandated warning applies: This information has been disclosed to you from records protected by federal confidentiality rules (42 CFR part 2). The federal rules prohibit you from making any further disclosure of this information unless further disclosure is expressly permitted by the written consent of the person to whom it pertains or as otherwise permitted by 42 CFR part 2. A general authorization for the release of medical or other information is NOT sufficient for this purpose. The Federal rules restrict any use of the information to criminally investigate or prosecute any alcohol or drug abuse patient.The records that you are about to access may contain highly sensitive health information, the redisclosure of which is protected by Article 27-F of the [facility] Public Health law. If you continue you may have access to information: Regarding HIV / AIDS; Provided by facilities licensed or operated by the [facility] Office of Mental Health; or Provided by the [facility] Office for People With Developmental Disabilities. If such information is present, then the following [facility] mandated warning applies: This information has been disclosed to you from confidential records which are protected by state law. State law prohibits you from making any further disclosure of this information without the specific written consent of the person to whom it pertains, or as otherwise permitted by law. Any unauthorized further disclosure in violation of state law may result in a fine or intermediate sentence or both. A general authorization for the release of medical or other information is NOT sufficient authorization for further disc losure. Family History Family Member Name Family Member Gender Family Member Status Date o f Status Description Data Source(s) Unknown Unknown Problem [facility] ([facility]) Unknown Unknown Problem [facility] ([facility]) father Encounters Encounter Providers Location Date Indications Data Source(s ) Outpatient Attender: KATYA xiong 10/31/2020 10:00:00 AM EDT [facility] ([facility] Outpatient Attender: JADA SKINNER Physical Therapy 03/17/2020 06:00:00 PM EST [facility] Outpatient Attender: JADA SKINNER Physical Therapy 03/04/2020 02:15:00 PM EST [facility] ([facility] ) Outpatient Attender: Jessica brysony 01/26/2020 05:45:00 PM EDT [facility] ([facility], [facility]) Outpatient Attender: BETH ISAACS SR 09/18/2019 08:18:00 AM [facility] Outpatient Attender: BETH ISAACS SRReferrer: TIGRE ISAACS SR EMERGENCY ROOM-LAB 09/18/2019 08:06:00 AM EDT - 09/18/2019 08:06:00 AM [facility] Emergency Attender: BUD ACReferrer: BETH Narvaez 10/16/2018 06:17:00 PM EDT - 10/16/2018 08:30:00 PM EDT [facility] Outpatient Attender: BETH ISAACS SR EMERGENCY ROOM-LAB 08:00:00 AM EDT - 10/26/2016 08:00:00 AM [facility] Medications Medication Brand Name Start Date Product Form Dose Route Admi nistrative Instructions Pharmacy Instructions Status Indications Reaction Description Data Source(s) 20 mg 01/12/2021 12:00:00 AM EDT tablet 7 TAKE ONE TABLET BY MOUTH EVERY DAY WITH FOOD TAKE ONE TABLET BY MOUTH EVERY DAY WITH FOOD SOLD: 01/14/2021 [facility] Prednisone 20 MG Oral Tablet Prednisone 01/12/2021 12:00:00 AM EDT ORAL active [facility] ([facility], ) No Active Medications 12/30/2020 12:00:00 AM EDT completed MED[facility] ([facility], ) Omeprazole 40 MG Delayed Release Oral Capsule Omeprazole 12/30/2020 12:00:00 AM EDT ORAL active [facility] ([facility], ) 40 mg 12/30/2020 12:00:00 AM EDT capsule,delayed release (DR/EC) 60 TAKE ONE CAPSULE BY MOUTH TWICE A DAY TAKE ONE CAPSULE BY MOUTH TWICE A DAY SOLD: 12/30/2020 [facility] Mupirocin 0.02 MG/MG Topical Ointment Mupirocin 10/31/2020 12:00:00 AM EDT completed [facility] ([facility], [facility]) 100 mg 10/31/2020 12:00:00 AM EDT capsule 20 TAKE ONE CAPSULE BY MOUTH TWICE A DAY FOR 10 DAYS TAKE ONE CAPSULE BY MOUTH TWICE A DAY FOR 10 DAYS SOLD : 10/31/2020 [facility] 2 % 10/31/2020 12:00:00 AM EDT ointment 22 APPLY TO AFFECTED AREA ON FACE TWO TIMES A DAY DIRECTED APPLY TO AFFECTED AREA ON FACE TWO TIMES A DAY DIRECTED SOLD: 10/31/2020 [facility] Doxycycline Monohydrate 100 MG Oral Capsule Doxycycline [place] hydrate 10/31/2020 12:00:00 AM EDT ORAL completed [facility] ([facility], [facility]) 300 mg 03/18/2020 12:00:00 AM EST capsule 90 TAKE ONE CAPSULE BY MOUTH AT BEDTIME FOR 1 WEEK THEN TWO TIMES A DAY FOR 1 WEEK THEN 1 THREE TIMES A DAY THEREAFTER TAKE ONE CAPSULE BY MOUTH AT BEDTIME FOR 1 WEEK THEN TWO TIMES A DAY FOR 1 WEEK THEN 1 THREE TIMES A DAY THEREAFTER SOLD: 03/20/2020 [facility] gabapentin 300 MG Oral Capsule Gabapentin 03/17/2020 12:00:00 AM EST ORAL active MEDENT ([facility] ) No Active Medications 03/08/2020 12:00:00 AM EST completed [facility] ([facility]) doxycycline hyclate 100 MG Oral Capsule Doxycycline Hyclate 01/26/2020 12:00:00 AM EDT active [facility] ([facility]) doxycycline hyclate 100 MG Oral Capsule DOXYCYCLINE HYCLATE 01/26/2020 12:00:00 AM EDT capsule 14 TAKE ONE CAPSULE BY MOUTH TWICE A DAY FOR 7 DAYS, TAKE WITH FOOD TAKE ONE CAPSULE BY MOUTH TWICE A DAY FOR 7 DAYS, TAKE WITH FOOD SOLD: 01/26/2020 [facility] Insurance Providers Payer name Policy type / Coverage type Policy ID Covered constitution party ID Covered constitution party's relationship to avendaño Policy Avendaño Plan Information [facility] RONNELL BARK[place]ALE [id number] SP [id number] MEDICARE COMPLETE [id number] SP [id number] [facility] [id number] SP [id number] [facility] [id number] S [id number] BC EMPIRE [id number] S [id number] EMPIRE PLAN [facility] U [id number] Self [id number] UNITED HE[employer]CARE [id number] SP [id number] BCBS EMPIRE YUSUF DIV [id number] SP [id number] [facility] PLAN [facility] [id number] SP [id number] [employer] [id number] SP [id number] BCBS EMPIRE BC YLS S YLS BCBS EMPIRE YUSUF DIV [id number] SP [id number] [employer] [id number] SP [id number] BCBS EMPIRE YUSUF DIV [id number] SP [id number] [facility] [place] [facility] Maintenance Organization (HMO) [id number] Self EMPIRE ([facility]) O [id number] S [id number] EMPIRE BC/BS B [id number] S [id number] [employer] O [id number] S [id number] [employer] [id number] S [id number] BCBS EMPIRE [id number] S [id number] [employer] [id number] S [id number] [facility] [place] [facility] Maintenance Organization (HMO) [id number] Self [id number] [facility] [place] Commercial [id number] Self [id number] BCBS EMPIRE BC [id number] S [id number] [facility] [id number] SP [id number] Problems, Conditions, and Diagnoses Code Display Name Description Problem Type Effective Dates Data Source(s) [id number] Pure hypercholesterolemia Pure hypercholesterolemia Pr oblem 03/08/2020 12:00:00 AM EST [facility] ([facility]) Surgeries/Procedures Procedure Description Date Indications Data Source(s) LARYNGOSCOPY FLEXIBLE FIBEROPTIC DIAGNOSTIC 01/12/2021 12:00:00 AM EDT MED[facility] ([facility], ) OFFICE OUTPATIENT VISIT 15 MINUTES 10/31/2020 12:00:00 AM EDT MED[facility] ([facility], [facility]) RADIOLOGIC EXAMINATION TIBIA & FIBULA 2 VIEWS 03/04/20 12:00:00 AM EST [facility] ([facility]) RADEX ANKLE COMPLETE MINIMUM 3 VIEWS 03/04/2020 12:00: 00 AM EST [facility] ([facility]) INCISION & DRAINAGE ABSCESS SIMPLE/SINGLE 01/26/2020 1 2:00:00 AM EDT [facility] ([facility], [facility]) Results ID Date Data Source [id number] 12/17/2020 12:00:00 AM EDT [facility] Name Value Range Interpretation Code Description Data Kylah rce(s) Supporting Document(s) SARS-CoV2 Rapid Antigen Negative [facility] by [facility]. ID Date Data Source [id number] 06/02/2020 12:00:00 AM EST [facility] Name Value Range Interpretation Code Description Data Kylah rce(s) Supporting Document(s) SARS-CoV2 Rapid Antigen Negative [facility] This lab was reported by [facility]. ID Date Data Source [id number] 03/12/2020 12:00:00 AM EST [facility] Jada SKINNER Patient Name: HERI ALVAREZ[address] [facility] [place] Date of : 1965[facility] [address] Date [facility] Exam: [facility]2020[facility] [place] [address]#: Fax: [phone] EXAM: CT LOWER EXTREMITY W/O CONTRASTCLINICAL INFORMATION: Low dose 64 slice helical scanning through the rightlower leg was obtained using 2 mm increments and reconstructed in bothcoronal and sagittal planes. 3D reconstr uctions were also obtained. Postprocessing was performed at the physician's workstation.COMPARISON: 06/27/2019.A small bone island is again seen in the medial tibial plateau unchanged.Two vertical screw holes extending anterior to posterior which werepreviously seen in the proximal tibia have filled in with healing callus.Plate and screws are again seen in the distal tibia and these remain ingood position. No displaced hardware is seen. There is advanced healing ofthe distal tibial fracture. Metallic plate and screws are seen in thedistal fibula, also unchanged with no displaced hardware. Several tinycalcifications are again seen in the superficial soft-tissuesanteromedially as seen on prior study. Two small rounded calcific densitiesare seen adjacent to the medial malleolus. The ankle mortise is anatomic.Accredited by the [employer] in [place].JAVON Velazquez/More you for referring HERI ALVAREZ to our office. Electronically Signed - SOLO REED MD 03/12/20 18:58 Name Value Range Interpretation Code Description Data Kylah rce(s) Supporting Document(s) ID Date Data Source [id number] 01/26/2020 06:55:00 PM EDT MED[facility] ([facility], [facility]) Name Value Range Interpretation Code Description Data Kylah rce(s) Supporting Document(s) Gram Stain Laboratory test result MED[facility] ([facility], [facility]) NO CELLS SEEN NO ORGANISMS SEEN Abscess Culture Laboratory test result [facility] ([facility], [facility]) <content>FULL REPORT IN LAB NOTES ([facility] a nd Medent).</content>
<content></content>
<content>ORGANISM 1: STAPH.AUREUS METHICILLIN RESIS</content>
<content></content>
<content>QUANTITY OF GROWTH HEAVY</content>
<content></content>
<content></content>
<content>ORG ANISM 1: STAPH.AUREUS METHICILLIN RESIS</content>
<content></content>
<content>STAPH.AUREUS METHICILLIN RESIS: REACTION</content>
<content>ICR (INDUCIBLE CC RESISTANCE) IV ICR TEST RESULT</content>
<content>TETRACYCLINE PO 250 mg qid <=1 S</content>
<content>PENICILLIN G IV 1 mu q6H >=0.5 R</content>
<content>PENICILLIN G IV 1 mu q6h >=0.5 R</content>
<content>PENICILLIN G PO 250mg q6h fasting >=0.5 R</content>
<content> TRIMETHOPRIM/SULFAMETHOXAZOLE IV 160mg TMP & 800mg SMXq6h <=10 S</content>
<content>TRIMETHOPRIM/SULFAMETHOXAZOLE PO Bactrim DS Bid <=10 S</content>
<content>ERYTHROMYCIN IV 500mg q6h >=8 R</content>
<content>ERYTHROMYCIN PO 500mg q6h >=8 R</content>
<content>GENTAMICIN IV 80mg q8h <=0.5 S</content>
<content>CLINDAMYCIN IV 600mg q6h 0.25 S</content>
<content>CLINDAMYCIN PO 150mg q6h 0.25 S</content>
<content>OXACILLIN IV 500mg q6h >=4 R</content>
<content>VANCOMYCIN IV 500mg q8h <=0.5 S</content>
<content>LINEZOLID (ZYVOX) IV 600MG Q12HR 2 S</content>
<content> LINEZOLID (ZYVOX) PO 600MG Q12HR 2 S</content>
<content>An isolate with a (+) POSITIVE ICR test is considered</content>
<content>CLINDAMYCIN RESISTANT; however, clindamycin may still</content>
<content>be effective in some patients.</content>
<content>An isolate with a (-) NEGATIVE ICR test is considered</content>
<content>CLIDAMYCIN SENSITIVE.</content>
<content></content> Procedure Social History Code Duration Value Status Description Data Source(s ) Smoking 01/26/2020 12:00:00 AM EDT Patient has never smoked co mpleted Patient has never smoked [facility] ([facility], [facility]) Vital Signs ID Date Data Source UNK Name Value Range Interpretation Code Description Data Source(s) Body weight 246.00 [lb_av] 246.00 [lb_av] MEDEN T ([facility]) Body mass index (BMI) [Ratio] 34.3 kg/m2 34.3 k g/m2 [facility] ([facility]) [place] body weight 172 [lb_av] 172 [lb_av] MEDEN T ([facility]) Body weight 111.586 kg 111.586 kg MED[facility] ([facility]) Body surface area Derived from formula 2.30 m2 2.30 m2 [facility] ([facility]) Body height 71 [in_i] 71 [in_i] [facility] ([facility]) 5'11" [place] body weight 172 [lb_av] 172 [lb_av] MEDEN T ([facility]) Body surface area Derived from formula 2.31 m2 2.31 m2 [facility] ([facility]) Body height 71 [in_i] 71 [in_i] [facility] ([facility]) 5'11" Body weight 248.00 [lb_av] 248.00 [lb_av] MEDEN T ([facility]) Body mass index (BMI) [Ratio] 34.6 kg/m2 34.6 k g/m2 [facility] ([facility]) Body weight 112.493 kg 112.493 kg [facility] ([facility]) Body height 71 [in_i] 71 [in_i] [facility] ([facility]) 5'11" Body weight 245.00 [lb_av] 245.00 [lb_av] MEDEN T ([facility]) Body mass index (BMI) [Ratio] 34.2 kg/m2 34.2 k g/m2 [facility] ([facility]) [place] body weight 172 [lb_av] 172 [lb_av] MEDEN T ([facility]) Body weight 111.132 kg 111.132 kg [facility] ([facility]) Body surface area Derived from formula 2.30 m2 2.30 m2 [facility] ([facility]) Systolic blood pressure 24 mm[Hg] 24 mm[Hg] M EDENT ([facility], [facility]) Diastolic blood pressure 88 mm[Hg] 88 mm[Hg] [facility] ([facility], [facility]) Heart rate 86 /min 86 /min [facility] ([facility], [facility]) Respiratory rate 16 /min 16 /min [facility] ( [facility], [facility]) Oxygen saturation in Arterial blood by Pulse oximetry 96 % 96 % [facility] ([facility], [facility]) Body temperature 97.3 [degF] 97.3 [degF] [facility] ([facility], [facility]) Body weight 225.00 [lb_av] 225.00 [lb_av] MEDEN T ([facility], [facility]) Body height 71 [in_i] 71 [in_i] [facility] ([facility], [facility]) 5'11" Body mass index (BMI) [Ratio] 31.4 kg/m2 31.4 k g/m2 [facility] ([facility], [facility]) Body temperature 97.2 [degF] 97.2 [degF] [facility] ([facility]) Diastolic blood pressure 90 mm[Hg] 90 mm[Hg] [facility] ([facility], [facility]) Systolic blood pressure 125 mm[Hg] 125 mm[Hg] [facility] ([facility], [facility]) Heart rate 84 /min 84 /min [facility] ([facility], [facility]) Respiratory rate 18 /min 18 /min [facility] ( [facility], [facility]) Oxygen saturation in Arterial blood by Pulse oximetry 95 % 95 % [facility] ([facility], [facility]) Body temperature 98.3 [degF] 98.3 [degF] [facility] ([facility], [facility]) Body weight 235.00 [lb_av] 235.00 [lb_av] RADHA Mcmanus ([facility], [facility]) Body height 71 [in_i] 71 [in_i] [facility]) 5'11" Body mass index (BMI) [Ratio] 32.8 kg/m2 32.8 k g/m2 [place] ([facility], [facility])
[2021-01-19] MEDS ORDERED: fentaNYL 100 MCG/2 ML INJECTION (J3010) As Ordered ONE (08:02)
[2021-01-19] MEDS ORDERED: ROCURONIUM BROMIDE 50 MG/5 ML VIAL As Ordered ONE (08:03)
[2021-01-19] MEDS ORDERED: propofoL 200 MG/20 ML VIAL As Ordered ONE ×2 (08:03→10:05)
[2021-01-19] MEDS ORDERED: MIDAZOLAM INJ 2MG/2ML VIAL (J2250 PER 1MG) As Ordered ONE (08:03)
[2021-01-19] MEDS ORDERED: LIDOCAINE 2% 100MG/5ML SDV (FOR ANES.) As Ordered ONE ×2 (08:03→10:05)
[2021-01-19] MEDS ORDERED: dexameTHASONE 4 MG/ML 1ML VIAL (J1100 PER 1MG) As Ordered ONE (08:04)
[2021-01-19] MEDS ORDERED: ONDANSETRON 4MG/2ML VIAL As Ordered ONE (08:04)
[2021-01-19] MEDS ORDERED: ACETAMINOPHEN 1000MG 100ML IV BTL (OFIRMEV) (J0131 PER 10MG) As Ordered ONE ×2 (08:13→10:30)
[2021-01-19] MEDS ORDERED: CETACAINE SPRAY 5GM As Ordered ONE (09:07)
[2021-01-19] MEDS ORDERED: LIDOCAINE W/EPINEPHRINE 1% 20ML VIAL As Ordered ONE (09:57)
[2021-01-19] MEDS ORDERED: LIDOCAINE VISCOUS 2% SOLN 15ML UDC As Ordered ONE (10:37)
[2021-01-19] MEDS ORDERED: LR 1,000 ML IV SCH (10:50)
[2021-01-19] MEDS ORDERED: fentaNYL 100 MCG/2 ML INJECTION (J3010) IV PRN (10:50)
[2021-01-19] MEDS ORDERED: ONDANSETRON 4MG/2ML VIAL IV PRN (10:50)
[2021-01-19] MEDS ORDERED: ACETAMINOPHEN/CODEINE 300MG/30MG 12.5 ML UDC PO PRN (10:50)
[2021-01-19] MEDS ORDERED: oxyCODONE 5MG TAB PO PRN (10:50)
[2021-01-19] MEDS: LR 1,000 ML IV SCH ×2 (12:17→20:48)
[2021-01-20] VITALS: BP 109/58
[2021-01-20 04:00] VITALS: BP 130/72
[2021-01-20] MEDS: LR 1,000 ML IV SCH (06:25)
[2021-01-20 07:34] VITALS: BP 136/80
[2021-01-20 11:44] VITALS: BP 129/81
--- NOTE | 2021-01-20 14:00 | ECGEPIP ---
[facility] Test Date: 2021-01-19 Pat Name: HERI ALVAREZ Department: Room: - Gender: Male Certified Teacher Assistant: YULIA : 1965 Requested By: Curtis Lemons Order Number: [id number] Reading MD: Albin Maria Measurements Intervals [place] Rate: 80 P: 47 MT: 174 QRS: 9 QRSD: 98 T: 27 QT: 368 QTc: 424 Interpretive Statements Sinus rhythm with premature atrial complexes Otherwise normal EKG No significant change when compared to prior tracing of March 18, 2019 Electronically Signed on 01-20-2021 14:00:06 EDT by Albin Maria
--- NOTE | 2021-01-27 14:21 | RO ---
OPERATIVE NOTE DATE OF OPERATION: 01/19/2021 PREOPERATIVE DIAGNOSIS: Tumor, base of tongue. POSTOPERATIVE DIAGNOSIS: Tumor, base of tongue. OPERATIVE PROCEDURE: Direct laryngoscopy and biopsy. SURGEON: Marcio Jaquez MD [address] [employer]: ANESTHESIA: FINDINGS: There was a tumor which extended just to the left side of midline over to the right side of the base of tongue, it did not extend to the lateral pharyngeal wall. It extended into the vallecula. The epiglottis itself looked fine. The tumor measured approximately 3 cm in diameter. Several biopsies were taken during the procedure. DESCRIPTION OF PROCEDURE: Under general anesthesia the patient was able to be intubated but with difficulty. Once the tube was in place I inserted laryngoscope after I used a dental guard. Many biopsies were taken of the tumor. The above findings were seen. Once I was by the tumor everything looked very good. There was no problem with bleeding. The patient was extubated and transferred to the recovery room in excellent condition.
== END 2021-01-20 13:28 | disposition home or self-care (01) ==
LOC: M SDC 07:12 → M PCU 11:15 → M SDC 01-20 13:28
PROVIDERS: ATTEND Otolaryngology
DX: C83.90 Non-follicular (diffuse) lymphoma, unspecified, unspecified site (principal); J39.2 Other diseases of pharynx; Z79.899 Other long term (current) drug therapy; Z79.52 Long term (current) use of systemic steroids
CPT/HCPCS: 31536; 88305; 93005; 96360; 96361; J0131; J1100; J2250; J2405; J3010

== ENCOUNTER 2021-03-16 22:13 | Emergency (ER) | payer BC, OTHER ==
[~2021-03-16] VITALS: Ht 180.3 cm; Wt 104.5 kg
[~2021-03-16 22:13] MED LIST changes: -LR 1,000 ML IV ONE
[2021-03-16 22:14] VITALS: BP 124/82
== END 2021-03-17 01:28 | disposition left against medical advice (07) ==
LOC: M ED 22:13
DX: Z53.21 Procedure and treatment not carried out due to patient leaving prior to being seen by health care provider (principal)

== ENCOUNTER → 2021-03-31 | Outpatient (REF) | payer BC, OTHER ==
[2021-03-31 14:33] LABS: HEMATOCRIT 40.3 % (42.0-52.0); HEMOGLOBIN 13.6 g/dl (13.5-17.5); MEAN CORPUSCULAR HEMOGLOBIN 29.2 pg (27.0-33.0); MEAN CORPUSCULAR HGB CONC 33.7 g/dl (32.0-36.5); MEAN CORPUSCULAR VOLUME 86.5 fl (80.0-96.0); PLATELET COUNT, AUTOMATED 118 10^3/uL (150-450); RED BLOOD COUNT 4.66 10^6/uL (4.30-6.10); WHITE BLOOD COUNT 5.2 10^3/uL (4.0-10.0)
[2021-03-31 14:59] LABS: ALBUMIN 3.6 GM/DL (3.2-5.2); ALT/SGPT 40 U/L (12-78); BILIRUBIN,TOTAL 0.3 MG/DL (0.2-1.0); BLOOD UREA NITROGEN 21 MG/DL (7-18); CALCIUM LEVEL 8.6 MG/DL (8.5-10.1); CARBON DIOXIDE LEVEL 31 MEQ/L (21-32); CHLORIDE LEVEL 103 MEQ/L (98-107); CREATININE FOR GFR 0.86 MG/DL (0.70-1.30); GLOMERULAR FILTRATION RATE > 60.0 (>56); GLUCOSE, FASTING 113 MG/DL (70-100); LDH LACTATE DEHYDROGENASE 273 U/L (87-241); POTASSIUM SERUM 3.5 MEQ/L (3.5-5.1); SODIUM LEVEL 139 MEQ/L (136-145); TOTAL PROTEIN 6.5 GM/DL (6.4-8.2)
[2021-03-31 15:01] LABS: EOSINOPHILS 1 % (0-3); LYMPHOCYTES 36 % (16-44); MONOCYTES 4 % (0-5); NEUTROPHILS 58 % (28-66)
[2021-03-31 15:02] LABS: PLATELET ESTIMATE DECREASED (NORMAL)
== END ==
LOC: M SHH 14:09
DX: C83.10 Mantle cell lymphoma, unspecified site (principal)

== ENCOUNTER → 2021-04-05 | Outpatient (REF) | payer BC, OTHER ==
[2021-04-05 14:55] LABS: HEMATOCRIT 43.8 % (42.0-52.0); HEMOGLOBIN 14.7 g/dl (13.5-17.5); MEAN CORPUSCULAR HEMOGLOBIN 29.5 pg (27.0-33.0); MEAN CORPUSCULAR HGB CONC 33.6 g/dl (32.0-36.5); MEAN CORPUSCULAR VOLUME 87.8 fl (80.0-96.0); PLATELET COUNT, AUTOMATED 248 10^3/uL (150-450); RED BLOOD COUNT 4.99 10^6/uL (4.30-6.10); WHITE BLOOD COUNT 24.3 10^3/uL (4.0-10.0)
[2021-04-05 15:18] LABS: BLOOD UREA NITROGEN 18 MG/DL (7-18); CREATININE FOR GFR 1.05 MG/DL (0.70-1.30); GLUCOSE, FASTING 216 MG/DL (70-100)
[2021-04-05 15:19] LABS: ALT/SGPT 78 U/L (12-78); BILIRUBIN,TOTAL 0.2 MG/DL (0.2-1.0); CARBON DIOXIDE LEVEL 27 MEQ/L (21-32); CHLORIDE LEVEL 102 MEQ/L (98-107); GLOMERULAR FILTRATION RATE > 60.0 (>56); LDH LACTATE DEHYDROGENASE 353 U/L (87-241); SODIUM LEVEL 135 MEQ/L (136-145); TOTAL PROTEIN 7.1 GM/DL (6.4-8.2); URIC ACID 7.2 MG/DL (3.5-7.2)
[2021-04-05 15:23] LABS: ATYPICAL LYMPH 1 % (0-5); BASOPHILS 2 % (0-1); LYMPHOCYTES 26 % (16-44); MONOCYTES 9 % (0-5); NEUTROPHILS 49 % (28-66)
[2021-04-05 15:25] LABS: PLATELET ESTIMATE NORMAL (NORMAL)
== END ==
LOC: M SHH 14:37
PROVIDERS: ATTEND Internal Medicine
DX: C83.10 Mantle cell lymphoma, unspecified site (principal)

== ENCOUNTER → 2021-04-19 | Outpatient (REF) | payer BC, OTHER ==
[~2021-04-19] MED LIST changes: -OMEP-221 PO; +OMEP40CA5 PO
[2021-04-19 16:08] LABS: HEMATOCRIT 37.3 % (42.0-52.0); HEMOGLOBIN 12.2 g/dl (13.5-17.5); MEAN CORPUSCULAR HEMOGLOBIN 29.5 pg (27.0-33.0); MEAN CORPUSCULAR HGB CONC 32.7 g/dl (32.0-36.5); MEAN CORPUSCULAR VOLUME 90.3 fl (80.0-96.0); PLATELET COUNT, AUTOMATED 227 10^3/uL (150-450); RED BLOOD COUNT 4.13 10^6/uL (4.30-6.10)
[2021-04-19 16:27] LABS: WHITE BLOOD COUNT 53.1 10^3/uL (4.0-10.0)
[2021-04-19 16:33] LABS: ALBUMIN 3.7 GM/DL (3.2-5.2); ALT/SGPT 37 U/L (12-78); BILIRUBIN,TOTAL 0.4 MG/DL (0.2-1.0); BLOOD UREA NITROGEN 22 MG/DL (7-18); CALCIUM LEVEL 9.1 MG/DL (8.5-10.1); CARBON DIOXIDE LEVEL 27 MEQ/L (21-32); CHLORIDE LEVEL 104 MEQ/L (98-107); CREATININE FOR GFR 1.07 MG/DL (0.70-1.30); GLOMERULAR FILTRATION RATE > 60.0 (>56); GLUCOSE, FASTING 157 MG/DL (70-100); LDH LACTATE DEHYDROGENASE 338 U/L (87-241); POTASSIUM SERUM 3.1 MEQ/L (3.5-5.1); SODIUM LEVEL 142 MEQ/L (136-145); TOTAL PROTEIN 6.6 GM/DL (6.4-8.2); URIC ACID 6.4 MG/DL (3.5-7.2)
[2021-04-19 17:19] LABS: BASOPHILS 1 % (0-1); LYMPHOCYTES 1 % (16-44); NEUTROPHILS 93 % (28-66); TOXIC VACUOLATION 1+
[2021-04-19 17:20] LABS: PLATELET ESTIMATE NORMAL (NORMAL)
== END ==
LOC: M SHH 15:38
PROVIDERS: ATTEND Physician Assistant
DX: C83.10 Mantle cell lymphoma, unspecified site (principal)

== ENCOUNTER → 2021-05-03 | Outpatient (REF) | payer BC, OTHER | LOC: M SHH 15:55 | PROVIDERS: ATTEND Internal Medicine | DX: C83.10 Mantle cell lymphoma, unspecified site (principal) ==

== ENCOUNTER → 2021-05-10 | Outpatient (REF) | payer BC, OTHER ==
[2021-05-10 16:22] LABS: HEMATOCRIT 38.8 % (42.0-52.0); HEMOGLOBIN 12.7 g/dl (13.5-17.5); MEAN CORPUSCULAR HEMOGLOBIN 30.1 pg (27.0-33.0); MEAN CORPUSCULAR HGB CONC 32.7 g/dl (32.0-36.5); MEAN CORPUSCULAR VOLUME 91.9 fl (80.0-96.0); PLATELET COUNT, AUTOMATED 264 10^3/uL (150-450); RED BLOOD COUNT 4.22 10^6/uL (4.30-6.10)
[2021-05-10 16:52] LABS: WHITE BLOOD COUNT 54.2 10^3/uL (4.0-10.0)
[2021-05-10 16:54] LABS: ALBUMIN 4.2 GM/DL (3.2-5.2); ALT/SGPT 40 U/L (12-78); BILIRUBIN,TOTAL 0.5 MG/DL (0.2-1.0); BLOOD UREA NITROGEN 21 MG/DL (7-18); CALCIUM LEVEL 9.6 MG/DL (8.5-10.1); CARBON DIOXIDE LEVEL 27 MEQ/L (21-32); CHLORIDE LEVEL 105 MEQ/L (98-107); CREATININE FOR GFR 0.91 MG/DL (0.70-1.30); GLOMERULAR FILTRATION RATE > 60.0 (>56); GLUCOSE, FASTING 82 MG/DL (70-100); LDH LACTATE DEHYDROGENASE 270 U/L (87-241); POTASSIUM SERUM 3.5 MEQ/L (3.5-5.1); SODIUM LEVEL 142 MEQ/L (136-145); TOTAL PROTEIN 7.3 GM/DL (6.4-8.2); URIC ACID 4.8 MG/DL (3.5-7.2)
[2021-05-10 18:37] LABS: LYMPHOCYTES 4 % (16-44)
[2021-05-10 18:38] LABS: PLATELET ESTIMATE NORMAL (NORMAL)
[2021-05-10 18:39] LABS: ANISOCYTOSIS 1+
[2021-05-10 18:40] LABS: MONOCYTES 1 % (0-5); NEUTROPHILS 91 % (28-66)
== END ==
LOC: M LABDRWCV 15:46
DX: C83.10 Mantle cell lymphoma, unspecified site (principal)

== ENCOUNTER → 2021-05-17 | Outpatient (REF) | payer BC, OTHER ==
[2021-05-17 16:58] LABS: HEMATOCRIT 41.2 % (42.0-52.0); HEMOGLOBIN 13.5 g/dl (13.5-17.5); MEAN CORPUSCULAR HEMOGLOBIN 30.1 pg (27.0-33.0); MEAN CORPUSCULAR HGB CONC 32.8 g/dl (32.0-36.5); MEAN CORPUSCULAR VOLUME 91.8 fl (80.0-96.0); PLATELET COUNT, AUTOMATED 214 10^3/uL (150-450); RED BLOOD COUNT 4.49 10^6/uL (4.30-6.10); WHITE BLOOD COUNT 15.1 10^3/uL (4.0-10.0)
[2021-05-17 17:16] LABS: ALBUMIN 3.9 GM/DL (3.2-5.2); ALT/SGPT 53 U/L (12-78); BILIRUBIN,TOTAL 0.1 MG/DL (0.2-1.0); BLOOD UREA NITROGEN 14 MG/DL (7-18); CALCIUM LEVEL 9.1 MG/DL (8.5-10.1); CARBON DIOXIDE LEVEL 24 MEQ/L (21-32); CHLORIDE LEVEL 106 MEQ/L (98-107); GLOMERULAR FILTRATION RATE > 60.0 (>56); GLUCOSE, FASTING 181 MG/DL (70-100); LDH LACTATE DEHYDROGENASE 237 U/L (87-241); POTASSIUM SERUM 3.7 MEQ/L (3.5-5.1); SODIUM LEVEL 141 MEQ/L (136-145); TOTAL PROTEIN 7.1 GM/DL (6.4-8.2)
[2021-05-17 19:37] LABS: ATYPICAL LYMPH 1 % (0-5); BASOPHILS 1 % (0-1); EOSINOPHILS 2 % (0-3); LYMPHOCYTES 14 % (16-44); METAMYELOCYTES 2 % (0-0); MONOCYTES 4 % (0-5); MYELOCYTES 1 % (0-0); NEUTROPHILS 64 % (28-66)
[2021-05-17 19:38] LABS: ANISOCYTOSIS 2+; POIKILOCYTOSIS 1+; POLYCHROMASIA 1+
[2021-05-17 19:39] LABS: PLATELET ESTIMATE NORMAL (NORMAL)
== END ==
LOC: M LABDRWCV 16:24
DX: C83.10 Mantle cell lymphoma, unspecified site (principal)

== ENCOUNTER → 2021-05-23 | Outpatient (REF) | payer BC, OTHER ==
[2021-05-23 16:10] LABS: BASO # 0.2 10^3/uL (0.0-0.2); BASO % 2.9 % (0.0-1.0); EOS # 0.1 10^3/uL (0.0-0.5); EOS % 2.5 % (0.0-3.0); HEMATOCRIT 41.3 % (42.0-52.0); HEMOGLOBIN 13.8 g/dl (13.5-17.5); LYMPH # 1.1 10^3/uL (1.5-5.0); LYMPH % 19.4 % (24.0-44.0); MEAN CORPUSCULAR HEMOGLOBIN 30.1 pg (27.0-33.0); MEAN CORPUSCULAR HGB CONC 33.4 g/dl (32.0-36.5); MEAN CORPUSCULAR VOLUME 90.2 fl (80.0-96.0); MONO # 0.8 10^3/uL (0.0-0.8); MONO % 13.7 % (2.0-8.0); NEUTROPHILS # 3.4 10^3/uL (1.5-8.5); NEUTROPHILS % 60.4 % (36.0-66.0); PLATELET COUNT, AUTOMATED 191 10^3/uL (150-450); RED BLOOD COUNT 4.58 10^6/uL (4.30-6.10); WHITE BLOOD COUNT 5.6 10^3/uL (4.0-10.0)
[2021-05-23 16:45] LABS: ALBUMIN 3.9 GM/DL (3.2-5.2); ALT/SGPT 56 U/L (12-78); BILIRUBIN,TOTAL 0.8 MG/DL (0.2-1.0); BLOOD UREA NITROGEN 15 MG/DL (7-18); CARBON DIOXIDE LEVEL 24 MEQ/L (21-32); CHLORIDE LEVEL 108 MEQ/L (98-107); CREATININE FOR GFR 1.03 MG/DL (0.70-1.30); GLOMERULAR FILTRATION RATE > 60.0 (>56); GLUCOSE, FASTING 131 MG/DL (70-100); LDH LACTATE DEHYDROGENASE 235 U/L (87-241); POTASSIUM SERUM 4.3 MEQ/L (3.5-5.1); SODIUM LEVEL 139 MEQ/L (136-145); TOTAL PROTEIN 6.9 GM/DL (6.4-8.2); URIC ACID 7.6 MG/DL (3.5-7.2)
== END ==
LOC: M LABDRWCV 15:35
PROVIDERS: ATTEND Nurse Practitioner Family
DX: C83.10 Mantle cell lymphoma, unspecified site (principal)

== ENCOUNTER → 2021-09-02 | Outpatient (REF) | payer OTHER, BC | LOC: M LAB REF 09:32 | PROVIDERS: ATTEND Internal Medicine | DX: L02.91 Cutaneous abscess, unspecified (principal) ==

== ENCOUNTER → 2022-08-09 | Outpatient (REF) | payer OTHER, BC ==
[2022-08-09 12:00] LABS: CORTISOL AM 17.4 UG/DL (4.3-22.4)
[2022-08-09 12:04] LABS: PROLACTIN 7.48 NG/ML (2.1-17.7)
[2022-08-09 12:05] LABS: FOLLICLE STIMULATING HORMONE 30.6 mIU/ML (1.4-18.1); LUTEINIZING HORMONE 5.6 mIU/ML (1.5-9.3)
== END ==
LOC: M LABDRAWC 11:21
PROVIDERS: ATTEND Internal Medicine Endocrinology, Diabetes & Metabolism
DX: R53.83 Other fatigue (principal)

== ENCOUNTER → 2022-10-24 | Outpatient (REF) | payer BC, OTHER | LOC: M LABDRAWC 11:03 | PROVIDERS: ATTEND Physician Assistant | DX: C61 Malignant neoplasm of prostate (principal); R31.9 Hematuria, unspecified ==

== ENCOUNTER → 2023-11-28 | Outpatient (CLI) | payer OTHER, BC ==
[2023-11-28 11:13] LABS: HEMATOCRIT 48.5 % (42.0-52.0); HEMOGLOBIN 16.2 g/dl (13.5-17.5); MEAN CORPUSCULAR HEMOGLOBIN 29.3 pg (27.0-33.0); MEAN CORPUSCULAR HGB CONC 33.4 g/dl (32.0-36.5); MEAN CORPUSCULAR VOLUME 87.7 fl (80.0-96.0); PLATELET COUNT, AUTOMATED 229 10^3/uL (150-450); RED BLOOD COUNT 5.53 10^6/uL (4.30-6.10); WHITE BLOOD COUNT 5.9 10^3/uL (4.0-10.0)
[2023-11-28 11:36] LABS: ALBUMIN 4.3 G/DL (3.2-5.2); ALKALINE PHOSPHATASE 88 U/L (46-116); ALT/SGPT 28 U/L (7.0-40); AST/SGOT 18 U/L (<34); BILIRUBIN,TOTAL 0.6 MG/DL (0.3-1.2); BLOOD UREA NITROGEN 23 MG/DL (9-23); CALCIUM LEVEL 9.3 MG/DL (8.5-10.1); CARBON DIOXIDE LEVEL 29 MMOL/L (20-31); CHLORIDE LEVEL 105 MMOL/L (98-107); CHOLESTEROL LEVEL 245 MG/DL (<200); CREATININE FOR GFR 0.96 MG/DL (0.70-1.30); GLOMERULAR FILTRATION RATE > 60.0 (>56); GLUCOSE, FASTING 107 MG/DL (60-100); LDL CHOLESTEROL 157.6 MG/DL (<100); POTASSIUM SERUM 4.3 MMOL/L (3.5-5.1); PSA SCREENING 0.04 NG/ML (< 4.00); SODIUM LEVEL 137 MMOL/L (136-145); TOTAL PROTEIN 7.1 G/DL (5.7-8.2); TRIGLYCERIDES LEVEL 192 MG/DL (<150)
[2023-11-28 11:37] LABS: TOTAL 25(OH) VITAMIN D 24.6 NG/ML (20.0-100.0)
[2023-11-28 11:38] LABS: TESTOSTERONE 516 NG/DL (241-827); THYROID STIMULATING HORMONE 1.687 uIU/ML (0.55-4.78)
[2023-11-28 11:54] LABS: HEMOGLOBIN A1c 5.9 % (4.0-6.0)
== END ==
LOC: M RAD 10:02
PROVIDERS: ATTEND Family Medicine
DX: D64.9 Anemia, unspecified (principal); R53.83 Other fatigue; E03.9 Hypothyroidism, unspecified
CPT/HCPCS: 36415; 71046; 80053; 80061; 82306; 83036; 84403; 84443; 85027; 93005; G0103

== ENCOUNTER 2023-12-17 09:59 | Emergency (ER) | payer BC, OTHER ==
[~2023-12-17] VITALS: Ht 180.3 cm; Wt 111.0 kg
[2023-12-17] MEDS ORDERED: SIMV20TA22 (10:38)
[2023-12-17] MEDS ORDERED: TADA5TAB (10:38)
[2023-12-17 11:35] LABS: BASO # 0.1 10^3/uL (0.0-0.2); BASO % 1.2 % (0.0-1.0); EOS # 0.2 10^3/uL (0.0-0.5); EOS % 2.2 % (0.0-3.0); HEMOGLOBIN 16.7 g/dl (13.5-17.5); LYMPH # 1.7 10^3/uL (1.5-5.0); LYMPH % 22.2 % (24.0-44.0); MEAN CORPUSCULAR HEMOGLOBIN 29.5 pg (27.0-33.0); MEAN CORPUSCULAR HGB CONC 33.4 g/dl (32.0-36.5); MEAN CORPUSCULAR VOLUME 88.2 fl (80.0-96.0); MONO # 0.6 10^3/uL (0.0-0.8); MONO % 8.3 % (2.0-8.0); NEUTROPHILS # 5.1 10^3/uL (1.5-8.5); PLATELET COUNT, AUTOMATED 293 10^3/uL (150-450); RED BLOOD COUNT 5.67 10^6/uL (4.30-6.10); WHITE BLOOD COUNT 7.7 10^3/uL (4.0-10.0)
[2023-12-17 11:47] LABS: INR 1.12; PARTIAL THROMBOPLASTIN TIME 31.3 SECONDS (24.8-34.2); PROTHROMBIN TIME 14.1 SECONDS (12.5-14.5)
[2023-12-17 11:55] LABS: CALCIUM LEVEL 9.9 MG/DL (8.5-10.1); CREATININE FOR GFR 1.52 MG/DL (0.70-1.30); GLOMERULAR FILTRATION RATE 50.4 (>56); POTASSIUM SERUM 4.6 MMOL/L (3.5-5.1)
[2023-12-17] MEDS: NS 500 ML IV ONE (12:21)
[2023-12-17] MEDS: KETOROLAC 30 MG/ML 1ML VIAL IV ONE (12:21)
[2023-12-17] MEDS: NS 1,000 ML IV SCH (13:09)
[2023-12-17] MEDS ORDERED: ONDA-282 PO (13:43)
[2023-12-17] MEDS ORDERED: PERC5TAB12 PO (13:43)
[2023-12-17] MEDS ORDERED: KETO10TAB PO (13:43)
[2023-12-17 13:57] VITALS: BP 149/99; TEMP 97.5; O2SAT 99
== END 2023-12-17 14:00 | disposition home or self-care (01) ==
LOC: M ED 09:59
DX: N20.1 Calculus of ureter (principal); K21.9 Gastro-esophageal reflux disease without esophagitis; E78.5 Hyperlipidemia, unspecified; F31.9 Bipolar disorder, unspecified; Z85.46 Personal history of malignant neoplasm of prostate
CPT/HCPCS: 74176; 76870; 80047; 80048; 81001; 85025; 85610; 85730; 86850; 86900; 86901; 93976; 96361; 96374; 99284; J1885

== ENCOUNTER 2023-12-28 07:16 | Observation (INO) | payer BC ==
[~2023-12-28] VITALS: Ht 180.3 cm; Wt 109.1 kg
[~2023-12-28 07:16] MED LIST changes: +CIAL5TAB PO; +KETO10TAB PO; +ONDA-282 PO; +SIMV20TA22 PO; +TADA20TA29 PO; +TADA5TAB; +TAMS1CAP17 PO
[2023-12-28] MEDS ORDERED: LR 1,000 ML IV SCH (07:30)
[2023-12-28] MEDS ORDERED: ACETAMINOPHEN 1000MG 100ML IV BAG As Ordered ONE (07:58)
[2023-12-28] MEDS ORDERED: propofoL 200 MG/20 ML VIAL As Ordered ONE (07:58)
[2023-12-28] MEDS ORDERED: fentaNYL 100 MCG/2 ML INJECTION As Ordered ONE (07:58)
[2023-12-28] MEDS ORDERED: LIDOCAINE 2% 100MG/5ML SDV (FOR ANES.) As Ordered ONE (07:58)
[2023-12-28] MEDS ORDERED: MIDAZOLAM INJ 2MG/2ML VIAL As Ordered ONE (07:58)
[2023-12-28] MEDS ORDERED: ONDANSETRON 4MG 2ML VIAL As Ordered ONE (07:58)
[2023-12-28] MEDS: ceFAZolin SOD 2 GM in IV 1 EA IV ONE (09:03)
[2023-12-28] MEDS: ISOVUE-300 61% 100ML VIAL As Ordered ONE (09:35)
[2023-12-28] MEDS ORDERED: ONDANSETRON 4MG 2ML VIAL IV PRN ×3 (10:30→16:05)
[2023-12-28] MEDS ORDERED: OXYB5TAB14 PO (10:54)
[2023-12-28] MEDS: fentaNYL 100 MCG/2 ML INJECTION IV PRN (11:13)
[2023-12-28] MEDS: oxyBUTYnin 5 MG TAB PO PRN (11:18)
[2023-12-28] MEDS: HYDROMORPHONE HCL 0.5 MG/ 0.5 ML SYRINGE IV PRN ×2 (11:47→12:40)
[2023-12-28] MEDS: oxyCODONE 5MG TAB PO PRN ×2 (11:48→13:18)
[2023-12-28] MEDS ORDERED: fentaNYL 100 MCG/2 ML INJECTION IV PRN (12:50)
[2023-12-28] MEDS: KETOROLAC 30 MG/ML 1ML VIAL IV STA (14:22)
[2023-12-28] MEDS ORDERED: KETO10TAB PO (14:53)
[2023-12-28] MEDS ORDERED: OXYC1TAB23 PO (14:53)
[2023-12-28 16:00] VITALS: BP 126/79; TEMP 97.9; O2SAT 96
[2023-12-28] MEDS: PERCOCET 5MG/325MG TAB PO PRN (18:50)
[2023-12-28] MEDS: LR 1,000 ML IV SCH ×2 (19:22)
[2023-12-28] MEDS: DOCUSATE SODIUM 100MG CAPSULE PO SCH (20:06)
[2023-12-28] MEDS: KETOROLAC 30 MG/ML 1ML VIAL IV SCH (20:06)
[2023-12-28] MEDS ORDERED: SIMVASTATIN 20 MG TAB PO SCH (21:00)
[2023-12-28 21:04] VITALS: BP 121/86; TEMP 97.3; O2SAT 96
[2023-12-28 23:23] VITALS: BP 115/84; TEMP 97.7; O2SAT 92
[2023-12-29 04:54] VITALS: BP 120/83; TEMP 98.2; O2SAT 94
[2023-12-29 06:26] LABS: HEMATOCRIT 45.7 % (42.0-52.0); HEMOGLOBIN 15.3 g/dl (13.5-17.5); MEAN CORPUSCULAR HEMOGLOBIN 29.5 pg (27.0-33.0); MEAN CORPUSCULAR HGB CONC 33.5 g/dl (32.0-36.5); MEAN CORPUSCULAR VOLUME 88.1 fl (80.0-96.0); PLATELET COUNT, AUTOMATED 274 10^3/uL (150-450); RED BLOOD COUNT 5.19 10^6/uL (4.30-6.10); WHITE BLOOD COUNT 13.3 10^3/uL (4.0-10.0)
[2023-12-29 06:44] LABS: CALCIUM LEVEL 9.3 MG/DL (8.5-10.1); CREATININE FOR GFR 1.51 MG/DL (0.70-1.30); GLOMERULAR FILTRATION RATE 50.8 (>56); POTASSIUM SERUM 4.3 MMOL/L (3.5-5.1)
[2023-12-29 08:00] VITALS: BP 147/87; TEMP 97.2; O2SAT 95
[2023-12-29] MEDS ORDERED: LEVO1TAB39 PO (10:10)
[2023-12-29] MEDS: LevoFLOXacin 500 MG TABLET PO ONE (10:57)
[2023-12-29] MEDS: KETOROLAC 30 MG/ML 1ML VIAL IV ONE (10:57)
[2023-12-29 11:02] VITALS: BP 160/99; TEMP 98.1; O2SAT 97
[2023-12-29 12:00] VITALS: BP 160/82; TEMP 98.2; O2SAT 92
[2023-12-29] MEDS ORDERED: NS 1,000 ML IV SCH (14:30)
[2023-12-29] MEDS: NS 1,000 ML IV SCH (14:33)
[2023-12-29] MEDS: BISACODYL 5MG TAB PO ONE (15:18)
[2023-12-29 16:00] VITALS: BP 108/72; TEMP 98.1; O2SAT 95
[2023-12-29] MEDS: NS 500 ML IV ONE (18:39)
[2023-12-29] MEDS: KETOROLAC 30 MG/ML 1ML VIAL IV SCH (20:03)
[2023-12-29] MEDS: SENNA 8.6 MG TAB (SENOKOT) PO SCH (20:03)
[2023-12-29] MEDS: ALPRAZolam 0.5 MG TAB PO PRN (20:04)
[2023-12-29] MEDS: ACETAMINOPHEN TAB 650MG DOSE (2X325MG) PO PRN (20:07)
[2023-12-29 20:10] VITALS: BP 119/76; TEMP 98.2; O2SAT 96
[2023-12-30 04:01] VITALS: BP 119/77; TEMP 98.2; O2SAT 100
[2023-12-30] MEDS: LevoFLOXacin 500 MG TABLET PO SCH (06:19)
[2023-12-30 06:43] LABS: BASO # 0.1 10^3/uL (0.0-0.2); BASO % 0.5 % (0.0-1.0); EOS # 0.1 10^3/uL (0.0-0.5); EOS % 0.8 % (0.0-3.0); HEMATOCRIT 41.8 % (42.0-52.0); HEMOGLOBIN 13.8 g/dl (13.5-17.5); LYMPH # 1.6 10^3/uL (1.5-5.0); LYMPH % 12.5 % (24.0-44.0); MEAN CORPUSCULAR HEMOGLOBIN 29.6 pg (27.0-33.0); MEAN CORPUSCULAR VOLUME 89.5 fl (80.0-96.0); MONO % 7.9 % (2.0-8.0); NEUTROPHILS # 9.8 10^3/uL (1.5-8.5); NEUTROPHILS % 77.7 % (36.0-66.0); PLATELET COUNT, AUTOMATED 234 10^3/uL (150-450); RED BLOOD COUNT 4.67 10^6/uL (4.30-6.10); WHITE BLOOD COUNT 12.6 10^3/uL (4.0-10.0)
[2023-12-30 07:11] LABS: CALCIUM LEVEL 8.3 MG/DL (8.5-10.1); CREATININE FOR GFR 1.38 MG/DL (0.70-1.30); GLOMERULAR FILTRATION RATE 56.3 (>56); POTASSIUM SERUM 4.2 MMOL/L (3.5-5.1)
[2023-12-30 08:00] VITALS: TEMP 98.1; O2SAT 93
== END 2023-12-30 10:45 | disposition home or self-care (01) ==
LOC: M SDC 07:16 → M MS5PR 07:17 → M SDC 12-30 10:45
PROVIDERS: ADMIT Urology; ATTEND Urology
DX: N20.1 Calculus of ureter (principal); Z85.46 Personal history of malignant neoplasm of prostate; Z85.71 Personal history of Hodgkin lymphoma; Z92.21 Personal history of antineoplastic chemotherapy; E78.5 Hyperlipidemia, unspecified; Z79.899 Other long term (current) drug therapy
CPT/HCPCS: 36415; 52352; 52356; 74176; 76000; 80048; 82365; 85025; 85027; 87086; 96374; 96375; 96376; C1769; C2617; J0131; J0690; J1100; J1170; J1885; J2250; J2405; J3010; Q9967

== ENCOUNTER → 2024-07-10 | Outpatient (CLI) | payer BC ==
[~2024-07-10] MED LIST changes: +LEVO1TAB39 PO; +OXYB5TAB14 PO; +OXYC1TAB23 PO; -TADA5TAB; +TADA5TAB94
== END ==
LOC: M RAD 12:09
PROVIDERS: ATTEND Urology
DX: Z87.442 Personal history of urinary calculi (principal)